=== PATIENT | male | born 1935 | race American Indian/Alaskan Native ===

== ENCOUNTER 2017-03-04 19:43 | Emergency (ER) | payer MEDICARE ==
[2017-03-04 21:01] LABS: Basophils % (Auto) 0.9 % (0.0-1.8); Eosinophils % (Auto) 3.2 % (0.0-4.3); Hematocrit 42.7 % (35.5-45.6); Hemoglobin 13.7 gm/dl (11.8-15.2); Mean Corpuscular HGB Conc 32 % (32-34); Mean Corpuscular Hemoglobin 26 pg (28-32); Mean Corpuscular Volume 82 fl (84-94); Platelet Count 185 K/mm3 (140-440); Red Blood Count 5.19 M/mm3 (3.65-5.03); Red Cell Distribution Width 16.5 % (13.2-15.2); White Blood Count 5.2 K/mm3 (4.5-11.0)
[2017-03-04 21:06] LABS: Anion Gap 17 mmol/L; Blood Urea Nitrogen 13 mg/dL (9-20); Calcium 8.3 mg/dL (8.4-10.2); Carbon Dioxide 24 mmol/L (22-30); Chloride 108.2 mmol/L (98-107); Glucose 97 mg/dL (75-100); Potassium 3.7 mmol/L (3.6-5.0); Sodium 145 mmol/L (137-145)
[2017-03-04 21:49] LABS: Bilirubin,Urine NEG (Negative); Blood,Urine NEG (Negative); Ketones,Urine TR mg/dL (Negative); Leukocyte Esterase,Urine SM (Negative); Mucus,Urine FEW /HPF; Nitrite,Urine NEG (Negative); Protein,Urine <15 mg/dL mg/dL (Negative)
[2017-03-04] MEDS ORDERED: NACL 0.45% 500 ML IV SCH (22:00)
[2017-03-04] MEDS ORDERED: NACL 0.9% 1000 ML 1,000 ML IV ONE (22:07)
[2017-03-04] MEDS ORDERED: ROCEPHIN/NS 1 GM/50 ML 1 GM/50 ML BAG IV ONE (22:25)
--- NOTE | 2017-03-04 22:47 | Emergency Department Report ---
ED Male HPI - General Chief complaint: Urogenital-Male Stated complaint: FEVER,DISCOLORATION OF URINE Time Seen by Provider: 03/04/17 21:27 Source: EMS Mode of arrival: Stretcher Limitations: No Limitations - History of Present Illness Initial comments: 81-year-old male with a past medical history CHF, COPD, dementia, hypertension, arthritis, and BPH presents to the hospital with "dark discoloration in urine". Patient is only able to get simple yes and no responses to questions. He denies any pain. He states he does not know why he is here. Fever prior to arrival reported by the senior care. - Related Data Home Medications Medication Instructions Recorded Confirmed Last Taken Donepezil [Aricept] 5 mg PO QDAY 03/19/16 03/19/16 Unknown Sertraline [Zoloft] 100 mg PO QDAY 03/19/16 03/19/16 Unknown Tamsulosin [Flomax] 0.4 mg PO QDAY 03/19/16 03/19/16 Unknown Previous Rx's Medication Instructions Recorded Last Taken Type Aspirin [Aspirin BABY CHEW TAB] 81 mg PO QDAY #30 tab.chew 12/17/16 Unknown Rx Amoxicillin/K Clav Tab [Augmentin 1 each PO Q12HR #10 tablet 02/02/17 Unknown Rx 500 MG TAB] Hydrochlorothiazide [HCTZ] 12.5 mg PO QDAY capsule 02/02/17 Unknown Rx Lisinopril [Zestril TAB] 40 mg PO QDAY tablet 02/02/17 Unknown Rx Memantine Xr [Namenda Xr] 14 mg PO DAILY cap 02/02/17 Unknown Rx NIFEdipine XL [Procardia Xl] 30 mg PO Q12HR tablet 02/02/17 Unknown Rx Nitrofurantoin [place]/M-Cryst 100 mg PO Q12HR #14 capsule 03/04/17 Unknown Rx [Macrobid CAP] Allergies Allergy/AdvReac Type Severity Reaction Status Date / Time No Known Allergies Allergy Verified 01/30/17 11:54 ED Review of Systems ROS: Stated complaint: FEVER,DISCOLORATION OF URINE Other details as noted in HPI Comment: Unobtainable due to pts medical conditions (limited due to dementia see hpi) ED Past Medical Hx - Past Medical History Hx Hypertension: Yes Hx Congestive Heart Failure: Yes Hx Diabetes: Yes Hx Arthritis: Yes Hx COPD: Yes Hx Dementia: Yes Hx HIV: No Additional medical history: bph - Social History Smoking Status: Current Every Day Smoker Substance Use Type: None - Medications Home Medications: Home Medications Medication Instructions Recorded Confirmed Last Taken Type Donepezil [Aricept] 5 mg PO QDAY 03/19/16 03/19/16 Unknown History Sertraline [Zoloft] 100 mg PO QDAY 03/19/16 03/19/16 Unknown History Tamsulosin [Flomax] 0.4 mg PO QDAY 03/19/16 03/19/16 Unknown History Aspirin [Aspirin BABY CHEW TAB] 81 mg PO QDAY #30 tab.chew 12/17/16 Unknown Rx Amoxicillin/K Clav Tab [Augmentin 1 each PO Q12HR #10 tablet 02/02/17 Unknown Rx 500 MG TAB] Hydrochlorothiazide [HCTZ] 12.5 mg PO QDAY capsule 02/02/17 Unknown Rx Lisinopril [Zestril TAB] 40 mg PO QDAY tablet 02/02/17 Unknown Rx Memantine Xr [Namenda Xr] 14 mg PO DAILY cap 02/02/17 Unknown Rx NIFEdipine XL [Procardia Xl] 30 mg PO Q12HR tablet 02/02/17 Unknown Rx Nitrofurantoin [place]/M-Cryst 100 mg PO Q12HR #14 capsule 03/04/17 Unknown Rx [Macrobid CAP] ED Physical Exam - General Limitations: No Limitations - Other Other exam information: General: No limitations, patient is alert in no acute distress Head exam: Atraumatic, normocephalic Eyes exam: Normal appearance ENT: Moist mucous membrane, normal oropharynx Neck exam: Normal inspection, full range of motion Respiratory exam: Clear to auscultation bilateral, no wheezes, rales, crackles Cardiovascular: Normal rate and rhythm, normal heart sounds Abdomen: Soft, nondistended, and nontender, with normal bowel sounds, no rebound, or guarding : Uncircumcised, no penile lesions or testicular swelling Extremity: Full range of motion normal inspection no deformity Back: Normal Inspection, full range of motion, no tenderness Neurologic: Alert, oriented x3, cranial nerves intact, no motor or sensory deficit Psychiatric: normal affect, normal mood Skin: Warm, dry, intact ED Course Vital Signs 03/04/17 03/04/17 03/04/17 20:17 20:45 21:00 Temperature 99.5 F Pulse Rate 92 H 56 L 71 Respiratory 18 19 15 Rate Blood Pressure 127/84 Blood Pressure 130/83 [Left] O2 Sat by Pulse 95 96 95 Oximetry 03/04/17 03/04/17 03/04/17 21:30 22:00 22:31 Temperature Pulse Rate 68 65 71 Respiratory 18 17 17 Rate Blood Pressure 128/85 135/96 135/81 Blood Pressure [Left] O2 Sat by Pulse 94 96 93 Oximetry - Reevaluation(s) Reevaluation #1: 03/04/17 22:49 Patient has mild elevated in white cells on a UA. Straight cath. Rocephin ordered. Reevaluation #2: 03/04/17 23:04 pt tolerating po ED Medical Decision Making - Lab Data Result diagrams: 03/04/17 20:38 03/04/17 20:38 Lab Results 03/04/17 03/04/17 03/04/17 Range/Units 20:38 20:38 20:57 WBC 5.2 (4.5-11.0) K/mm3 RBC 5.19 H (3.65-5.03) M/mm3 Hgb 13.7 (11.8-15.2) gm/dl Hct 42.7 (35.5-45.6) % MCV 82 L (84-94) fl MCH 26 L (28-32) pg MCHC 32 (32-34) % RDW 16.5 H (13.2-15.2) % Plt Count 185 (140-440) K/mm3 Lymph % (Auto) 22.2 (13.4-35.0) % [place] % (Auto) 5.6 (0.0-7.3) % Eos % (Auto) 3.2 (0.0-4.3) % Baso % (Auto) 0.9 (0.0-1.8) % Lymph # 1.2 (1.2-5.4) K/mm3 [place] # 0.3 (0.0-0.8) K/mm3 Eos # 0.2 (0.0-0.4) K/mm3 Baso # 0.0 (0.0-0.1) K/mm3 Seg Neutrophils % 68.1 (40.0-70.0) % Seg Neutrophils # 3.6 (1.8-7.7) K/mm3 Sodium 145 (137-145) mmol/L Potassium 3.7 (3.6-5.0) mmol/L Chloride 108.2 H (98-107) mmol/L Carbon Dioxide 24 (22-30) mmol/L Anion Gap 17 mmol/L BUN 13 (9-20) mg/dL Creatinine 1.3 (0.8-1.5) mg/dL Estimated GFR > 60 ml/min BUN/Creatinine Ratio 10.00 % Glucose 97 (75-100) mg/dL Calcium 8.3 L (8.4-10.2) mg/dL Urine Color Yellow (Yellow) Urine Turbidity Clear (Clear) Urine pH 5.0 (5.0-7.0) Ur Specific [place] 1.025 (1.003-1.030) Urine Protein <15 mg/dl (Negative) mg/dL Urine Glucose (UA) Neg (Negative) mg/dL Urine Ketones Tr (Negative) mg/dL Urine Blood Neg (Negative) Urine Nitrite Neg (Negative) Urine Bilirubin Neg (Negative) Urine Urobilinogen 2.0 (<2.0) mg/dL Ur Leukocyte Esterase Sm (Negative) Urine WBC (Auto) 12.0 H (0.0-6.0) /HPF Urine RBC (Auto) 7.0 (0.0-6.0) /HPF Urine Mucus Few /HPF - Radiology Data Radiology results: image reviewed (cxr: naf) - Medical Decision Making Patient mild ureteral leukocytosis of therefore be covered with antibiotics while urine culture is pending however, without nitrites or bacteria reported have a low suspicion for significant UTI or infection. Patient has a high specific gravity and concentrated appearing urine suggestive of mild dehydration. BUN and creatinine normal. In the ED patient received 1 L normal saline and IV Rocephin. Pt will be discharged on Macrobid. Tolerating by mouth intake in the ED - Differential Diagnosis uti, peumonia, dehdration, dementia Critical Care Time: No Critical care attestation.: If time is entered above; I have spent that time in minutes in the direct care of this critically ill patient, excluding procedure time. ED Disposition Clinical Impression: Dementia, Mild dehydration, Urine WBC increased Disposition: DC-01 TO HOME OR SELFCARE Is pt being admited?: No Does the pt Need Aspirin: No Condition: Stable Instructions: Dehydration (ED), Urinary Tract Infection in Men (ED) Additional Instructions: Continues to eat and drink appropriately. Take the Medication as prescribed. Return if symptoms worsen. Prescriptions: Nitrofurantoin [place]/M-Cryst [Macrobid CAP] 100 mg PO Q12HR #14 capsule Referrals: PRIMARY CARE, [Primary Care Provider] - 3-5 Days Time of Disposition: 00:13
[2017-03-04 22:55] VITALS: BP 135/81
--- NOTE | 2017-03-05 01:31 | XRay Report ---
FINAL REPORT PROCEDURE: XR CHEST 1V AP TECHNIQUE: Chest radiograph anteroposterior view. 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 FINDINGS: Heart: Normal. Mediastinum/Vessels: There is mild pulmonary vascular congestion.. Lungs/Pleural space: There is suboptimal inspiration. There are infiltrates at the lung bases. There are no effusions or pneumothoraces.. Bony thorax: No acute osseous abnormality. Life support devices: None. IMPRESSION: No acute cardiopulmonary abnormality.
== END 2017-03-05 04:18 | disposition home or self-care (01) ==
LOC: ED 19:43
DX: F03.90 Unspecified dementia, unspecified severity, without behavioral disturbance, psychotic disturbance, mood disturbance, and anxiety (principal); E86.0 Dehydration; R82.99 Other abnormal findings in urine; I10 Essential (primary) hypertension; I50.9 Heart failure, unspecified; E11.9 Type 2 diabetes mellitus without complications; M19.90 Unspecified osteoarthritis, unspecified site; J44.9 Chronic obstructive pulmonary disease, unspecified; F17.200 Nicotine dependence, unspecified, uncomplicated; Z79.82 Long term (current) use of aspirin
CPT/HCPCS: 36415; 51701; 71010; 80048; 81001; 85025; 87086; 96365; 99284; J0696; J7030

== ENCOUNTER 2017-03-06 11:14 | Inpatient (IN) | payer MEDICARE ==
[2017-03-06] MEDS ORDERED: NACL 0.9% 500 ML 500 ML IV ONE (11:31)
--- NOTE | 2017-03-06 11:37 | Emergency Department Report ---
ED Altered Mental Status HPI - General Chief Complaint: Altered Mental Status Stated Complaint: SEPSIS Time Seen by Provider: 03/06/17 11:32 Source: EMS, RN notes reviewed, old records reviewed Mode of arrival: Stretcher Limitations: Altered Mental Status - History of Present Illness Initial Comments: 81-year-old male presents to the emergency department via EMS for evaluation of altered mental status and possible sepsis. Patient was seen in the emergency department 2 days ago with reported fever and discolored urine. He was able to be discharged home on oral Macrobid for possible UTI. At baseline, patient has dementia and answers yes/no questions only. Per report, the patient is slightly more altered than usual. Further history is unable to be obtained from the patient. MD Complaint: altered mental status -: Gradual, days(s) (2) Severity: mild Consistency of Symptoms: constant Context: recent fever - Related Data Home Medications Medication Instructions Recorded Confirmed Last Taken Donepezil [Aricept] 5 mg PO QDAY 03/19/16 03/19/16 Unknown Sertraline [Zoloft] 100 mg PO QDAY 03/19/16 03/19/16 Unknown Tamsulosin [Flomax] 0.4 mg PO QDAY 03/19/16 03/19/16 Unknown Previous Rx's Medication Instructions Recorded Last Taken Type Aspirin [Aspirin BABY CHEW TAB] 81 mg PO QDAY #30 tab.chew 12/17/16 Unknown Rx Amoxicillin/K Clav Tab [Augmentin 1 each PO Q12HR #10 tablet 02/02/17 Unknown Rx 500 MG TAB] Hydrochlorothiazide [HCTZ] 12.5 mg PO QDAY capsule 02/02/17 Unknown Rx Lisinopril [Zestril TAB] 40 mg PO QDAY tablet 02/02/17 Unknown Rx Memantine Xr [Namenda Xr] 14 mg PO DAILY cap 02/02/17 Unknown Rx NIFEdipine XL [Procardia Xl] 30 mg PO Q12HR tablet 02/02/17 Unknown Rx Nitrofurantoin [place]/M-Cryst 100 mg PO Q12HR #14 capsule 03/04/17 Unknown Rx [Macrobid CAP] Allergies Allergy/AdvReac Type Severity Reaction Status Date / Time No Known Allergies Allergy Verified 01/30/17 11:54 ED Review of Systems ROS: Stated complaint: SEPSIS Other details as noted in HPI Comment: Unobtainable due to pts medical conditions ED Past Medical Hx - Past Medical History Previous Medical History?: Yes Hx Hypertension: Yes Hx Congestive Heart Failure: Yes Hx Diabetes: Yes Hx Arthritis: Yes Hx COPD: Yes Hx Dementia: Yes Hx HIV: No Additional medical history: bph - Surgical History Additional Surgical History: Bilateral cataract surgery - Family History Family history: no significant - Social History Smoking Status: Unknown if ever smoked Substance Use Type: None - Medications Home Medications: Home Medications Medication Instructions Recorded Confirmed Last Taken Type Donepezil [Aricept] 5 mg PO QDAY 03/19/16 03/19/16 Unknown History Sertraline [Zoloft] 100 mg PO QDAY 03/19/16 03/19/16 Unknown History Tamsulosin [Flomax] 0.4 mg PO QDAY 03/19/16 03/19/16 Unknown History Aspirin [Aspirin BABY CHEW TAB] 81 mg PO QDAY #30 tab.chew 12/17/16 Unknown Rx Amoxicillin/K Clav Tab [Augmentin 1 each PO Q12HR #10 tablet 02/02/17 Unknown Rx 500 MG TAB] Hydrochlorothiazide [HCTZ] 12.5 mg PO QDAY capsule 02/02/17 Unknown Rx Lisinopril [Zestril TAB] 40 mg PO QDAY tablet 02/02/17 Unknown Rx Memantine Xr [Namenda Xr] 14 mg PO DAILY cap 02/02/17 Unknown Rx NIFEdipine XL [Procardia Xl] 30 mg PO Q12HR tablet 02/02/17 Unknown Rx Nitrofurantoin [place]/M-Cryst 100 mg PO Q12HR #14 capsule 03/04/17 Unknown Rx [Macrobid CAP] ED Physical Exam - General Limitations: No Limitations General appearance: alert, in no apparent distress - Head Head exam: Present: atraumatic, normocephalic - Eye Eye exam: Present: normal appearance, PERRL, EOMI - ENT ENT exam: Present: normal exam, normal orophraynx, mucous membranes moist - Neck Neck exam: Present: normal inspection, full ROM. Absent: tenderness - Respiratory Respiratory exam: Present: normal lung sounds bilaterally. Absent: respiratory distress - Cardiovascular Cardiovascular Exam: Present: normal rhythm, tachycardia, normal heart sounds - GI/Abdominal GI/Abdominal exam: Present: soft, normal bowel sounds. Absent: distended, tenderness - Extremities Exam Extremities exam: Present: normal inspection, full ROM. Absent: tenderness - Back Exam Back exam: Present: normal inspection, full ROM. Absent: tenderness - Neurological Exam Neurological exam: Present: alert. Absent: oriented X3 (not oriented), motor sensory deficit - Skin Skin exam: Present: warm, dry, intact ED Course Vital Signs 03/06/17 11:18 Temperature 102.2 F H Pulse Rate 120 H Respiratory 18 Rate Blood Pressure 165/108 O2 Sat by Pulse 95 Oximetry - Lab Data Result diagrams: 03/06/17 11:46 03/06/17 11:46 Lab Results 03/06/17 03/06/17 03/06/17 Range/Units 11:46 11:46 11:46 WBC 12.3 H (4.5-11.0) K/mm3 RBC 5.93 H (3.65-5.03) M/mm3 Hgb 15.2 (11.8-15.2) gm/dl Hct 48.1 H (35.5-45.6) % MCV 81 L (84-94) fl MCH 26 L (28-32) pg MCHC 32 (32-34) % RDW 16.4 H (13.2-15.2) % Plt Count 202 (140-440) K/mm3 PT 13.3 (12.2-14.9) Sec. INR 0.96 (0.87-1.13) VBG pH (7.320-7.420) Sodium 142 (137-145) mmol/L Potassium 4.0 (3.6-5.0) mmol/L Chloride 103.6 (98-107) mmol/L Carbon Dioxide 23 (22-30) mmol/L Anion Gap 19 mmol/L BUN 9 (9-20) mg/dL Creatinine 1.4 (0.8-1.5) mg/dL Estimated GFR 59 ml/min BUN/Creatinine Ratio 6.42 % Glucose 92 (75-100) mg/dL Lactic Acid (0.7-2.0) mmol/L Calcium 8.8 (8.4-10.2) mg/dL Total Bilirubin 0.60 (0.1-1.2) mg/dL AST 11 (5-40) units/L ALT 7 (7-56) units/L Alkaline Phosphatase 111 (35-129) units/L Total Protein 6.3 (6.3-8.2) g/dL Albumin 3.9 (3.9-5) g/dL Albumin/Globulin Ratio 1.6 % Urine Color (Yellow) Urine Turbidity (Clear) Urine pH (5.0-7.0) Ur Specific [place] (1.003-1.030) Urine Protein (Negative) mg/dL Urine Glucose (UA) (Negative) mg/dL Urine Ketones (Negative) mg/dL Urine Blood (Negative) Urine Nitrite (Negative) Urine Bilirubin (Negative) Urine Urobilinogen (<2.0) mg/dL Ur Leukocyte Esterase (Negative) Urine WBC (Auto) (0.0-6.0) /HPF Urine RBC (Auto) (0.0-6.0) /HPF U Epithel Cells (Auto) (0-13.0) /HPF Urine Bacteria (Auto) (Negative) /HPF Urine Mucus /HPF 03/06/17 03/06/17 03/06/17 Range/Units 11:46 11:46 12:08 WBC (4.5-11.0) K/mm3 RBC (3.65-5.03) M/mm3 Hgb (11.8-15.2) gm/dl Hct (35.5-45.6) % MCV (84-94) fl MCH (28-32) pg MCHC (32-34) % RDW (13.2-15.2) % Plt Count (140-440) K/mm3 PT (12.2-14.9) Sec. INR (0.87-1.13) VBG pH 7.366 (7.320-7.420) Sodium (137-145) mmol/L Potassium (3.6-5.0) mmol/L Chloride (98-107) mmol/L Carbon Dioxide (22-30) mmol/L Anion Gap mmol/L BUN (9-20) mg/dL Creatinine (0.8-1.5) mg/dL Estimated GFR ml/min BUN/Creatinine Ratio % Glucose (75-100) mg/dL Lactic Acid 1.80 (0.7-2.0) mmol/L Calcium (8.4-10.2) mg/dL Total Bilirubin (0.1-1.2) mg/dL AST (5-40) units/L ALT (7-56) units/L Alkaline Phosphatase (35-129) units/L Total Protein (6.3-8.2) g/dL Albumin (3.9-5) g/dL Albumin/Globulin Ratio % Urine Color Yellow (Yellow) Urine Turbidity Clear (Clear) Urine pH 5.0 (5.0-7.0) Ur Specific [place] 1.018 (1.003-1.030) Urine Protein <15 mg/dl (Negative) mg/dL Urine Glucose (UA) Neg (Negative) mg/dL Urine Ketones Tr (Negative) mg/dL Urine Blood Mod (Negative) Urine Nitrite Neg (Negative) Urine Bilirubin Neg (Negative) Urine Urobilinogen < 2.0 (<2.0) mg/dL Ur Leukocyte Esterase Mod (Negative) Urine WBC (Auto) 36.0 H (0.0-6.0) /HPF Urine RBC (Auto) 33.0 (0.0-6.0) /HPF U Epithel Cells (Auto) < 1.0 (0-13.0) /HPF Urine Bacteria (Auto) 1+ (Negative) /HPF Urine Mucus 1+ /HPF - EKG Data -: EKG Interpreted by Nh EKG shows normal: sinus rhythm Rate: tachycardia When compared to previous EKG there are: previous EKG unavailable Interpretation: other (sinus tachycardia, RBBB, LAFB, occasional PVC) - Medical Decision Making Patient seen immediately on arrival to the emergency department. Patient has positive sepsis screen with fever and tachycardia. Obtaining labs including blood cultures and urine culture. Continuing IV fluids. Review of previous emergency department visit showed he had a urine culture obtained at that time, which currently has no growth after 24 hours. We'll continue to monitor. 1238--lab results reviewed. Patient is being given IV Rocephin. Patient has a normal lactic acid. A repeat lactic acid will be obtained after 3 hours. Patient is to be admitted by the hospitalist. - Differential Diagnosis sepsis, UTI, dehydration Critical care attestation.: If time is entered above; I have spent that time in minutes in the direct care of this critically ill patient, excluding procedure time. ED Disposition Clinical Impression: Sepsis Qualifiers: Sepsis type: sepsis due to unspecified organism Qualified Code(s): A41.9 - Sepsis, unspecified organism UTI (urinary tract infection) Qualifiers: Urinary tract infection type: acute cystitis Hematuria presence: without hematuria Qualified Code(s): N30.00 - Acute cystitis without hematuria Disposition: OP ADMIT IP TO THIS HOSP Is pt being admited?: Yes Condition: Stable Referrals: PRIMARY CARE, [Primary Care Provider] - 3-5 Days Time of Disposition: 12:40
--- NOTE | 2017-03-06 12:15 | XRay Report ---
AP CHEST :03/06/17 11:14:00 CLINICAL: Sepsis. COMPARISON:03/04/17 FINDINGS: Normal heart and pulmonary vasculature. Prominent bibasal reticular interstitial opacities are unchanged compared to prior exams. No pulmonary consolidation. The bones and soft tissues are normal. IMPRESSION: No acute cardiopulmonary process. No pneumonia.
[2017-03-06 12:19] LABS: Hematocrit 48.1 % (35.5-45.6); Hemoglobin 15.2 gm/dl (11.8-15.2); Mean Corpuscular HGB Conc 32 % (32-34); Mean Corpuscular Volume 81 fl (84-94); Platelet Count 202 K/mm3 (140-440); Red Blood Count 5.93 M/mm3 (3.65-5.03); Red Cell Distribution Width 16.4 % (13.2-15.2); White Blood Count 12.3 K/mm3 (4.5-11.0)
[2017-03-06 12:20] LABS: Bacteria,Urine 1+ /HPF (Negative); Bilirubin,Urine NEG (Negative); Blood,Urine MOD (Negative); Ketones,Urine TR mg/dL (Negative); Leukocyte Esterase,Urine MOD (Negative); Mucus,Urine 1+ /HPF; Nitrite,Urine NEG (Negative); Protein,Urine <15 mg/dL mg/dL (Negative); Urobilinogen,Urine < 2.0 mg/dL (<2.0)
[2017-03-06 12:20] LABS: Mean Corpuscular Hemoglobin 26 pg (28-32)
[2017-03-06 12:25] LABS: INR 0.96 (0.87-1.13)
[2017-03-06 12:32] LABS: Albumin 3.9 g/dL (3.9-5); Albumin/Globulin Ratio 1.6 %; BUN/Creatinine Ratio 6.42; Bilirubin,Total 0.6 mg/dL (0.1-1.2); Calcium 8.8 mg/dL (8.4-10.2); Chloride 103.6 mmol/L (98-107); Total Protein 6.3 g/dL (6.3-8.2)
[2017-03-06] MEDS ORDERED: ROCEPHIN/NS 1 GM/50 ML 1 GM/50 ML BAG IV ONE (12:33)
--- NOTE | 2017-03-06 12:46 | History and Physical Report ---
History of Present Illness Chief complaint: confusion History of present illness: 81 YO Male with HTN, DM, OA, CHF, COPD, Dementia, BPH, Debility presents to ED for evaluation. Pt unable to provide detailed history. History taken from ED staff and medical record. No reports of fever, chills, CP, palpitations, NVD, Syncope, Trauma, Fall, BRBPR, Seizure, recent ill contacts. Pt seen and evaluated in ED and found to have suprapubic tenderness on exam and UA indicative of UTI, as well as sepsis. Sepsis protocol initiated in ED. Past History Past Medical History: arthritis, COPD, diabetes, heart failure, hypertension, other (Dementia, Debility, BPH) Past Surgical History: cataract removal Social history: , lives with family. denies: smoking, alcohol abuse, prescription drug abuse Family history: hypertension Medications and Allergies Allergies Allergy/AdvReac Type Severity Reaction Status Date / Time No Known Allergies Allergy Verified 01/30/17 11:54 Home Medications Medication Instructions Recorded Confirmed Last Taken Type Donepezil [Aricept] 5 mg PO QDAY 03/19/16 03/06/17 Unknown History Sertraline [Zoloft] 100 mg PO QDAY 03/19/16 03/06/17 Unknown History Tamsulosin [Flomax] 0.4 mg PO QDAY 03/19/16 03/06/17 Unknown History Aspirin [Aspirin BABY CHEW TAB] 81 mg PO QDAY #30 tab.chew 12/17/16 03/06/17 Unknown Rx Amoxicillin/K Clav Tab [Augmentin 1 each PO Q12HR #10 tablet 02/02/17 03/06/17 Unknown Rx 500 MG TAB] Hydrochlorothiazide [HCTZ] 12.5 mg PO QDAY capsule 02/02/17 03/06/17 Unknown Rx Lisinopril [Zestril TAB] 40 mg PO QDAY tablet 02/02/17 03/06/17 Unknown Rx Memantine Xr [Namenda Xr] 14 mg PO DAILY cap 02/02/17 03/06/17 Unknown Rx NIFEdipine XL [Procardia Xl] 30 mg PO Q12HR tablet 02/02/17 03/06/17 Unknown Rx Nitrofurantoin [place]/M-Cryst 100 mg PO Q12HR #14 capsule 03/04/17 03/06/17 Unknown Rx [Macrobid CAP] Active Meds: Active Medications Ceftriaxone Sodium (Rocephin/Ns 1 Gm/50 Ml) 1 gm in 50 mls @ 100 mls/hr IV ONCE ONE Stop: 03/06/17 13:02 Review of Systems ROS unobtainable: due to mental status Exam - Constitutional Vitals: Temp Pulse Resp BP Pulse Ox 102.2 F H 120 H 18 165/108 95 03/06/17 11:18 03/06/17 11:18 03/06/17 11:18 03/06/17 11:18 03/06/17 11:18 General appearance: Present: mild distress - EENT Eyes: Present: PERRL ENT: hearing intact, clear oral mucosa, other (ddry oral mucosa) - Neck Neck: Present: supple, normal ROM - Respiratory Respiratory: bilateral: diminished - Cardiovascular Heart Sounds: Present: S1 & S2. Absent: rub, click - Extremities Extremities: pulses symmetrical, No edema Peripheral Pulses: abnormal (Capillary refill: 3.5 seconds) - Abdominal General gastrointestinal: Present: soft, non-tender, non-distended, normal bowel sounds Male genitourinary: Present: normal - Integumentary Integumentary: Present: clear, dry, decreased turgor - Musculoskeletal Musculoskeletal: generalized weakness - Psychiatric Psychiatric: no intact judgment & insight, no memory intact - Neurologic Neurologic: CNII-XII intact, no gait normal, other (lethargic) Results - Labs CBC & Chem 7: 03/06/17 11:46 03/06/17 11:46 Labs: Abnormal lab results 03/06/17 03/06/17 Range/Units 11:46 12:08 WBC 12.3 H (4.5-11.0) K/mm3 RBC 5.93 H (3.65-5.03) M/mm3 Hct 48.1 H (35.5-45.6) % MCV 81 L (84-94) fl MCH 26 L (28-32) pg RDW 16.4 H (13.2-15.2) % Urine WBC (Auto) 36.0 H (0.0-6.0) /HPF Assessment and Plan - Patient Problems (1) Sepsis Current Visit: Yes Status: Acute Qualifiers: Sepsis type: sepsis due to unspecified organism Qualified Code(s): A41.9 - Sepsis, unspecified organism Plan to address problem: Sepsis protocol: IV abx, monitor uop q shift, serial lactic acid level, blood culutres, (2) Toxic encephalopathy Current Visit: Yes Status: Acute Plan to address problem: Treat sepsis, supportive care, fall precautions, PT consulted. (3) Accelerated hypertension Current Visit: Yes Status: Acute Plan to address problem: monitor bp q shift, monitor uop q shift, (4) UTI (urinary tract infection) Current Visit: Yes Status: Acute Qualifiers: Urinary tract infection type: acute cystitis Hematuria presence: without hematuria Indwelling urinary catheter type: I Encounter type: E Qualified Code(s): N30.00 - Acute cystitis without hematuria Plan to address problem: IV abx, supportive care, serial physical exam. (5) DVT prophylaxis Current Visit: Yes Status: Acute
[2017-03-06] MEDS ORDERED: DUONEB *Not for PRN Use IH (12:47)
[2017-03-06] MEDS ORDERED: VANCOMYCIN VIAL IV ONE (12:47)
[2017-03-06] MEDS ORDERED: NACL 0.9% 1000 ML IV ONE ×2 (12:47→18:00)
[2017-03-06] MEDS ORDERED: VANCOMYCIN PHARMACY TO DOSE IV SCH (13:00)
[2017-03-06 13:15] LABS: Blastocytes % (Manual) 0 %
[2017-03-06 13:16] LABS: Anisocytosis 1+; Diff Status Complete; Large Platelets Rare; Platelet Estimate Cons
[2017-03-06] MEDS ORDERED: PROVENTIL IH PRN (13:30)
[2017-03-06] MEDS: VANCOMYCIN 1,500 MG in NACL 0.9% 500 ML 500 ML IV SCH (15:28)
--- NOTE | 2017-03-07 10:00 | Progress Note ---
Assessment and Plan Assessment and plan: Sepsis due to UTI. Started on Rocephin. Toxic metabolic encephalopathy. Monitor neurochecks. He has baseline dementia. Acute cystitis. Continue Rocephin COPD. Stable Diabetes mellitus type 2. Check fingerstick glucose before every meal and at bedtime Hypertension. BP stable Dementia. Supportive care. On Namenda and Aricept. Put on restraints for now because he keeps trying to get out of bed, fall risk. Haldol prn. DVT prophylaxis with Heparin subcut Hospitalist Physical - Physical exam Narrative exam: Gen Appearance: No acute distress, HEENT: normocephalic, atraumatic Neck: supple, no JVD Lungs: clear to auscultation bilaterally, no crackles or wheezes Heart: S1 and S2 regular, no murmurs or gallop Abdomen: Soft, non-tender, non-distended, normal bowel sounds Extremity:No edema, clubbing or cyanosis Neuro : Awake, alert, confused - Constitutional Vitals: Temp Pulse Resp BP Pulse Ox 98.7 F 74 18 151/82 95 03/07/17 04:04 03/07/17 04:04 03/07/17 04:04 03/07/17 04:04 03/07/17 09:09 General appearance: Present: mild distress Results - Labs CBC & Chem 7: 03/06/17 11:46 03/06/17 11:46 Labs: Laboratory Last Values WBC 12.3 K/mm3 (4.5-11.0) H 03/06/17 11:46 RBC 5.93 M/mm3 (3.65-5.03) H 03/06/17 11:46 Hgb 15.2 gm/dl (11.8-15.2) 03/06/17 11:46 Hct 48.1 % (35.5-45.6) H 03/06/17 11:46 MCV 81 fl (84-94) L 03/06/17 11:46 MCH 26 pg (28-32) L 03/06/17 11:46 MCHC 32 % (32-34) 03/06/17 11:46 RDW 16.4 % (13.2-15.2) H 03/06/17 11:46 Plt Count 202 K/mm3 (140-440) 03/06/17 11:46 Add Manual Diff Complete 03/06/17 11:46 Total Counted 100 03/06/17 11:46 Seg Neuts % (Manual) 98.0 % (40.0-70.0) H 03/06/17 11:46 Band Neutrophils % 0 % 03/06/17 11:46 Lymphocytes % (Manual) 0 % (13.4-35.0) L 03/06/17 11:46 Reactive Lymphs % (Man) 0 % 03/06/17 11:46 Monocytes % (Manual) 0 % (0.0-7.3) 03/06/17 11:46 Eosinophils % (Manual) 1.0 % (0.0-4.3) 03/06/17 11:46 Basophils % (Manual) 1.0 % (0.0-1.8) 03/06/17 11:46 Metamyelocytes % 0 % 03/06/17 11:46 Myelocytes % 0 % 03/06/17 11:46 Promyelocytes % 0 % 03/06/17 11:46 Blast Cells % 0 % 03/06/17 11:46 Nucleated RBC % Not Reportable 03/06/17 11:46 Seg Neutrophils # Man 12.1 K/mm3 (1.8-7.7) H 03/06/17 11:46 Band Neutrophils # 0.0 K/mm3 03/06/17 11:46 Lymphocytes # (Manual) 0.0 K/mm3 (1.2-5.4) L 03/06/17 11:46 Abs React Lymphs (Man) 0.0 K/mm3 03/06/17 11:46 Monocytes # (Manual) 0.0 K/mm3 (0.0-0.8) 03/06/17 11:46 Eosinophils # (Manual) 0.1 K/mm3 (0.0-0.4) 03/06/17 11:46 Basophils # (Manual) 0.1 K/mm3 (0.0-0.1) 03/06/17 11:46 Metamyelocytes # 0.0 K/mm3 03/06/17 11:46 Myelocytes # 0.0 K/mm3 03/06/17 11:46 Promyelocytes # 0.0 K/mm3 03/06/17 11:46 Blast Cells # 0.0 K/mm3 03/06/17 11:46 WBC Morphology Not Reportable 03/06/17 11:46 Hypersegmented Neuts Not Reportable 03/06/17 11:46 Hyposegmented Neuts Not Reportable 03/06/17 11:46 Hypogranular Neuts Not Reportable 03/06/17 11:46 Smudge Cells Not Reportable 03/06/17 11:46 Toxic Granulation Not Reportable 03/06/17 11:46 Toxic Vacuolation Not Reportable 03/06/17 11:46 Dohle Bodies Not Reportable 03/06/17 11:46 Pelger-Huet Anomaly Not Reportable 03/06/17 11:46 Heather Rods Not Reportable 03/06/17 11:46 Platelet Estimate Cons 03/06/17 11:46 Clumped Platelets Not Reportable 03/06/17 11:46 Plt Clumps, EDTA Not Reportable 03/06/17 11:46 Large Platelets Rare 03/06/17 11:46 Giant Platelets Not Reportable 03/06/17 11:46 Platelet Satelliting Not Reportable 03/06/17 11:46 Plt Morphology Comment Not Reportable 03/06/17 11:46 RBC Morphology Not Reportable 03/06/17 11:46 Dimorphic RBCs Not Reportable 03/06/17 11:46 Polychromasia Not Reportable 03/06/17 11:46 Hypochromasia Not Reportable 03/06/17 11:46 Poikilocytosis Not Reportable 03/06/17 11:46 Anisocytosis 1+ 03/06/17 11:46 Microcytosis Not Reportable 03/06/17 11:46 Macrocytosis Not Reportable 03/06/17 11:46 Spherocytes Not Reportable 03/06/17 11:46 Pappenheimer Bodies Not Reportable 03/06/17 11:46 Sickle Cells Not Reportable 03/06/17 11:46 Target Cells Not Reportable 03/06/17 11:46 Tear Drop Cells Not Reportable 03/06/17 11:46 Ovalocytes Not Reportable 03/06/17 11:46 Helmet Cells Not Reportable 03/06/17 11:46 [place] Bodies Not Reportable 03/06/17 11:46 [place] Rings Not Reportable 03/06/17 11:46 [place] Cells Not Reportable 03/06/17 11:46 Bite Cells Not Reportable 03/06/17 11:46 Crenated Cell Not Reportable 03/06/17 11:46 Elliptocytes Not Reportable 03/06/17 11:46 Acanthocytes (Spur) Not Reportable 03/06/17 11:46 Rouleaux Not Reportable 03/06/17 11:46 Hemoglobin C Crystals Not Reportable 03/06/17 11:46 Schistocytes Not Reportable 03/06/17 11:46 Malaria parasites Not Reportable 03/06/17 11:46 Christiano Bodies Not Reportable 03/06/17 11:46 Hem Pathologist Commnt No 03/06/17 11:46 PT 13.3 Sec. (12.2-14.9) 03/06/17 11:46 INR 0.96 (0.87-1.13) 03/06/17 11:46 VBG pH 7.366 (7.320-7.420) 03/06/17 11:46 Sodium 142 mmol/L (137-145) 03/06/17 11:46 Potassium 4.0 mmol/L (3.6-5.0) 03/06/17 11:46 Chloride 103.6 mmol/L (98-107) 03/06/17 11:46 Carbon Dioxide 23 mmol/L (22-30) 03/06/17 11:46 Anion Gap 19 mmol/L 03/06/17 11:46 BUN 9 mg/dL (9-20) 03/06/17 11:46 Creatinine 1.4 mg/dL (0.8-1.5) 03/06/17 11:46 Estimated GFR 59 ml/min 03/06/17 11:46 BUN/Creatinine Ratio 6.42 % 03/06/17 11:46 Glucose 92 mg/dL (75-100) 03/06/17 11:46 Lactic Acid 1.10 mmol/L (0.7-2.0) 03/06/17 17:44 Calcium 8.8 mg/dL (8.4-10.2) 03/06/17 11:46 Total Bilirubin 0.60 mg/dL (0.1-1.2) 03/06/17 11:46 AST 11 units/L (5-40) 03/06/17 11:46 ALT 7 units/L (7-56) 03/06/17 11:46 Alkaline Phosphatase 111 units/L (35-129) 03/06/17 11:46 Total Protein 6.3 g/dL (6.3-8.2) 03/06/17 11:46 Albumin 3.9 g/dL (3.9-5) 03/06/17 11:46 Albumin/Globulin Ratio 1.6 % 03/06/17 11:46 Urine Color Yellow (Yellow) 03/06/17 12:08 Urine Turbidity Clear (Clear) 03/06/17 12:08 Urine pH 5.0 (5.0-7.0) 03/06/17 12:08 Ur Specific [place] 1.018 (1.003-1.030) 03/06/17 12:08 Urine Protein <15 mg/dl mg/dL (Negative) 03/06/17 12:08 Urine Glucose (UA) Neg mg/dL (Negative) 03/06/17 12:08 Urine Ketones Tr mg/dL (Negative) 03/06/17 12:08 Urine Blood Mod (Negative) 03/06/17 12:08 Urine Nitrite Neg (Negative) 03/06/17 12:08 Urine Bilirubin Neg (Negative) 03/06/17 12:08 Urine Urobilinogen < 2.0 mg/dL (<2.0) 03/06/17 12:08 Ur Leukocyte Esterase Mod (Negative) 03/06/17 12:08 Urine WBC (Auto) 36.0 /HPF (0.0-6.0) H 03/06/17 12:08 Urine RBC (Auto) 33.0 /HPF (0.0-6.0) 03/06/17 12:08 U Epithel Cells (Auto) < 1.0 /HPF (0-13.0) 03/06/17 12:08 Urine Bacteria (Auto) 1+ /HPF (Negative) 03/06/17 12:08 Urine Mucus 1+ /HPF 03/06/17 12:08
[2017-03-07] MEDS ORDERED: HALDOL IM PRN (11:30)
[2017-03-07] MEDS: ROCEPHIN/NS 2 GM/100 ML 2 GM/100 ML BAG IV SCH (11:52)
[2017-03-07] MEDS: VANCOMYCIN 1,500 MG in NACL 0.9% 500 ML 500 ML IV SCH (13:57)
[2017-03-07] MEDS: HEPARIN SUB-Q SCH (14:02)
[2017-03-07] MEDS: FLOMAX PO SCH (14:07)
[2017-03-07] MEDS: ZOLOFT PO SCH (14:07)
[2017-03-07] MEDS: BABY ASPIRIN PO SCH (14:07)
[2017-03-07] MEDS: MACROBID PO SCH (14:07)
[2017-03-07] MEDS: PROCARDIA XL PO SCH (14:07)
[2017-03-07] MEDS: ARICEPT PO SCH (14:08)
[2017-03-07] MEDS: NAMENDA XR PO SCH (15:29)
[2017-03-07] MEDS ORDERED: APRESOLINE IV PRN (20:11)
[2017-03-08] MEDS: HEPARIN SUB-Q SCH ×3 (06:40→22:02)
[2017-03-08] MEDS: ROCEPHIN/NS 2 GM/100 ML 2 GM/100 ML BAG IV SCH (10:00)
[2017-03-08] MEDS: PROCARDIA XL PO SCH ×3 (11:05→22:01)
[2017-03-08] MEDS: HCTZ PO SCH (11:05)
[2017-03-08] MEDS: ARICEPT PO SCH (11:06)
[2017-03-08] MEDS: NAMENDA XR PO SCH (11:06)
[2017-03-08] MEDS: FLOMAX PO SCH (11:06)
[2017-03-08] MEDS: MACROBID PO SCH ×3 (11:06→23:00)
[2017-03-08] MEDS: BABY ASPIRIN PO SCH (11:06)
[2017-03-08] MEDS: ZESTRIL PO SCH (11:07)
[2017-03-08] MEDS: ZOLOFT PO SCH (11:07)
--- NOTE | 2017-03-08 11:56 | Progress Note ---
Assessment and Plan Assessment and plan: Sepsis due to UTI. Continue Rocephin iv. His WBC was 12.3 on admission. Repeat CBC. Toxic metabolic encephalopathy. Monitor neurochecks. He has baseline dementia. Leukocytosis. Repeat CBC Acute cystitis. Continue Rocephin COPD. Stable Diabetes mellitus type 2. Check fingerstick glucose before every meal and at bedtime Hypertension. BP stable Dementia. Supportive care. On Namenda and Aricept. Continue restraints for now because he keeps trying to get out of bed, fall risk. Continue Haldol prn. DVT prophylaxis with Heparin subcut History Interval history: Still confused, Fever Hospitalist Physical - Physical exam Narrative exam: Gen Appearance: No acute distress, HEENT: normocephalic, atraumatic Neck: supple, no JVD Lungs: clear to auscultation bilaterally, no crackles or wheezes Heart: S1 and S2 regular, no murmurs or gallop Abdomen: Soft, non-tender, non-distended, normal bowel sounds Extremity:No edema, clubbing or cyanosis Neuro : Awake, alert, confused - Constitutional Vitals: Temp Pulse Resp BP Pulse Ox 100.4 F H 106 H 20 144/94 95 03/08/17 08:30 03/08/17 08:30 03/08/17 08:30 03/08/17 08:30 03/08/17 08:30 General appearance: Present: mild distress Results - Labs CBC & Chem 7: 03/06/17 11:46 03/06/17 11:46 Labs: Laboratory Last Values WBC 12.3 K/mm3 (4.5-11.0) H 03/06/17 11:46 RBC 5.93 M/mm3 (3.65-5.03) H 03/06/17 11:46 Hgb 15.2 gm/dl (11.8-15.2) 03/06/17 11:46 Hct 48.1 % (35.5-45.6) H 03/06/17 11:46 MCV 81 fl (84-94) L 03/06/17 11:46 MCH 26 pg (28-32) L 03/06/17 11:46 MCHC 32 % (32-34) 03/06/17 11:46 RDW 16.4 % (13.2-15.2) H 03/06/17 11:46 Plt Count 202 K/mm3 (140-440) 03/06/17 11:46 Add Manual Diff Complete 03/06/17 11:46 Total Counted 100 03/06/17 11:46 Seg Neuts % (Manual) 98.0 % (40.0-70.0) H 03/06/17 11:46 Band Neutrophils % 0 % 03/06/17 11:46 Lymphocytes % (Manual) 0 % (13.4-35.0) L 03/06/17 11:46 Reactive Lymphs % (Man) 0 % 03/06/17 11:46 Monocytes % (Manual) 0 % (0.0-7.3) 03/06/17 11:46 Eosinophils % (Manual) 1.0 % (0.0-4.3) 03/06/17 11:46 Basophils % (Manual) 1.0 % (0.0-1.8) 03/06/17 11:46 Metamyelocytes % 0 % 03/06/17 11:46 Myelocytes % 0 % 03/06/17 11:46 Promyelocytes % 0 % 03/06/17 11:46 Blast Cells % 0 % 03/06/17 11:46 Nucleated RBC % Not Reportable 03/06/17 11:46 Seg Neutrophils # Man 12.1 K/mm3 (1.8-7.7) H 03/06/17 11:46 Band Neutrophils # 0.0 K/mm3 03/06/17 11:46 Lymphocytes # (Manual) 0.0 K/mm3 (1.2-5.4) L 03/06/17 11:46 Abs React Lymphs (Man) 0.0 K/mm3 03/06/17 11:46 Monocytes # (Manual) 0.0 K/mm3 (0.0-0.8) 03/06/17 11:46 Eosinophils # (Manual) 0.1 K/mm3 (0.0-0.4) 03/06/17 11:46 Basophils # (Manual) 0.1 K/mm3 (0.0-0.1) 03/06/17 11:46 Metamyelocytes # 0.0 K/mm3 03/06/17 11:46 Myelocytes # 0.0 K/mm3 03/06/17 11:46 Promyelocytes # 0.0 K/mm3 03/06/17 11:46 Blast Cells # 0.0 K/mm3 03/06/17 11:46 WBC Morphology Not Reportable 03/06/17 11:46 Hypersegmented Neuts Not Reportable 03/06/17 11:46 Hyposegmented Neuts Not Reportable 03/06/17 11:46 Hypogranular Neuts Not Reportable 03/06/17 11:46 Smudge Cells Not Reportable 03/06/17 11:46 Toxic Granulation Not Reportable 03/06/17 11:46 Toxic Vacuolation Not Reportable 03/06/17 11:46 Dohle Bodies Not Reportable 03/06/17 11:46 Pelger-Huet Anomaly Not Reportable 03/06/17 11:46 Heather Rods Not Reportable 03/06/17 11:46 Platelet Estimate Cons 03/06/17 11:46 Clumped Platelets Not Reportable 03/06/17 11:46 Plt Clumps, EDTA Not Reportable 03/06/17 11:46 Large Platelets Rare 03/06/17 11:46 Giant Platelets Not Reportable 03/06/17 11:46 Platelet Satelliting Not Reportable 03/06/17 11:46 Plt Morphology Comment Not Reportable 03/06/17 11:46 RBC Morphology Not Reportable 03/06/17 11:46 Dimorphic RBCs Not Reportable 03/06/17 11:46 Polychromasia Not Reportable 03/06/17 11:46 Hypochromasia Not Reportable 03/06/17 11:46 Poikilocytosis Not Reportable 03/06/17 11:46 Anisocytosis 1+ 03/06/17 11:46 Microcytosis Not Reportable 03/06/17 11:46 Macrocytosis Not Reportable 03/06/17 11:46 Spherocytes Not Reportable 03/06/17 11:46 Pappenheimer Bodies Not Reportable 03/06/17 11:46 Sickle Cells Not Reportable 03/06/17 11:46 Target Cells Not Reportable 03/06/17 11:46 Tear Drop Cells Not Reportable 03/06/17 11:46 Ovalocytes Not Reportable 03/06/17 11:46 Helmet Cells Not Reportable 03/06/17 11:46 [place] Bodies Not Reportable 03/06/17 11:46 [place] Rings Not Reportable 03/06/17 11:46 Ary Cells Not Reportable 03/06/17 11:46 Bite Cells Not Reportable 03/06/17 11:46 Crenated Cell Not Reportable 03/06/17 11:46 Elliptocytes Not Reportable 03/06/17 11:46 Acanthocytes (Spur) Not Reportable 03/06/17 11:46 Rouleaux Not Reportable 03/06/17 11:46 Hemoglobin C Crystals Not Reportable 03/06/17 11:46 Schistocytes Not Reportable 03/06/17 11:46 Malaria parasites Not Reportable 03/06/17 11:46 Christiano Bodies Not Reportable 03/06/17 11:46 Hem Pathologist Commnt No 03/06/17 11:46 PT 13.3 Sec. (12.2-14.9) 03/06/17 11:46 INR 0.96 (0.87-1.13) 03/06/17 11:46 VBG pH 7.366 (7.320-7.420) 03/06/17 11:46 Sodium 142 mmol/L (137-145) 03/06/17 11:46 Potassium 4.0 mmol/L (3.6-5.0) 03/06/17 11:46 Chloride 103.6 mmol/L (98-107) 03/06/17 11:46 Carbon Dioxide 23 mmol/L (22-30) 03/06/17 11:46 Anion Gap 19 mmol/L 03/06/17 11:46 BUN 9 mg/dL (9-20) 03/06/17 11:46 Creatinine 1.4 mg/dL (0.8-1.5) 03/06/17 11:46 Estimated GFR 59 ml/min 03/06/17 11:46 BUN/Creatinine Ratio 6.42 % 03/06/17 11:46 Glucose 92 mg/dL (75-100) 03/06/17 11:46 Lactic Acid 1.10 mmol/L (0.7-2.0) 03/06/17 17:44 Calcium 8.8 mg/dL (8.4-10.2) 03/06/17 11:46 Total Bilirubin 0.60 mg/dL (0.1-1.2) 03/06/17 11:46 AST 11 units/L (5-40) 03/06/17 11:46 ALT 7 units/L (7-56) 03/06/17 11:46 Alkaline Phosphatase 111 units/L (35-129) 03/06/17 11:46 Total Protein 6.3 g/dL (6.3-8.2) 03/06/17 11:46 Albumin 3.9 g/dL (3.9-5) 03/06/17 11:46 Albumin/Globulin Ratio 1.6 % 03/06/17 11:46 Urine Color Yellow (Yellow) 03/06/17 12:08 Urine Turbidity Clear (Clear) 03/06/17 12:08 Urine pH 5.0 (5.0-7.0) 03/06/17 12:08 Ur Specific [place] 1.018 (1.003-1.030) 03/06/17 12:08 Urine Protein <15 mg/dl mg/dL (Negative) 03/06/17 12:08 Urine Glucose (UA) Neg mg/dL (Negative) 03/06/17 12:08 Urine Ketones Tr mg/dL (Negative) 03/06/17 12:08 Urine Blood Mod (Negative) 03/06/17 12:08 Urine Nitrite Neg (Negative) 03/06/17 12:08 Urine Bilirubin Neg (Negative) 03/06/17 12:08 Urine Urobilinogen < 2.0 mg/dL (<2.0) 03/06/17 12:08 Ur Leukocyte Esterase Mod (Negative) 03/06/17 12:08 Urine WBC (Auto) 36.0 /HPF (0.0-6.0) H 03/06/17 12:08 Urine RBC (Auto) 33.0 /HPF (0.0-6.0) 03/06/17 12:08 U Epithel Cells (Auto) < 1.0 /HPF (0-13.0) 03/06/17 12:08 Urine Bacteria (Auto) 1+ /HPF (Negative) 03/06/17 12:08 Urine Mucus 1+ /HPF 03/06/17 12:08
[2017-03-08] MEDS: VANCOMYCIN 1,500 MG in NACL 0.9% 500 ML 500 ML IV SCH (13:47)
--- NOTE | 2017-03-08 16:38 | Admit Criteria Form ---
Admission Criteria Documentation: MENTAL STATUS CHANGE Clinical Indications for Inpatient Care (Place 'X' for any and all applicable criteria): Ongoing inpatient care may be needed for 1 or more of the following(1)(2)(3)(5)( 6): [ X]I. Suspected serious etiology (eg, medical disorder, CHAIR LIFT OPERATOR event) of altered mental status [ ]II. Danger to self or others not manageable at lower level of care [ ]III. Grave disability (eg, inability to perform self care necessary at lower level of care) [ ]IV. Agitation or inappropriate behavior interfering with care for primary condition (eg, attempting to discontinue lines or drains prematurely, unable to cooperate with respiratory care) [ ]V. Delirium [A] [D][E] as described by 1 or more of the following(26): [ ]a) Delirium due to alcohol or sedative [F] withdrawal [ ]b) Delirium of uncertain etiology that has not responded to appropriate empiric treatment [ ]c) Delirium that prevents performance of a life-sustaining function (eg, feeding or hydrating oneself) [X ]. General contraindications and/or Inappropriate clinical situations for Observational Care in patients with Mental Status Change, when ANY ONE of the following is required: X]a) Prediction of prolongation of LOS based on ANY ONE of the following may be considered as a contraindication for observational care 2, 3, 4, 5, 6, 7, 8, 9, 10, 11 [X ]i) Age > 65 yrs. [ ]ii) Patient arriving by ambulance [ ]iii) Patient with high acuity [ ]iv) Patient requiring vital sign monitoring [ ]v) Patient on IV medication [ ]b) Systolic blood pressures greater than or equal to 180mmHg 3, 12 [ ]c) Patient with altered mental status including delirium and other alteration of consciousness, (3) [ ]d) Patient whose discharge disposition will be to a group home home or rehabilitation home should not be managed in Emergency Department Observation Unit. CMS rule requires 3 days hospital stay before such placement.3,13 [ ]e) Patient with failure to thrive due to broad array of etiologies 3,16,17 [ ]f) Inability to ambulate 3,14 Extended stay beyond goal length of stay for the primary condition may be needed until ALL of the following are present(3)(5): [ ]a) Underlying medical etiology of mental status change is absent, or has been established and adequately treated [ ]b) Danger to self or others is absent or manageable at lower level of care. [ ]c) Behavior crisis management, including physical or chemical restraints, is not required or available at lower level of car [ ]d) Substance or alcohol withdrawal is absent or manageable at lower level of care. [ ]e) Behavioral symptoms (eg, agitation, somnolence, inappropriate behavior) are absent, or are manageable at lower level of care. The original [facility] [employer] content created by [facility] has been revised. The portions of the content which have been revised are identified through the use of italic text or in bold, and [facility] has neither reviewed nor approved the modified material. All other unmodified content is copyright [facility]. Please see references footnoted in the original [facility] edition 2016 Admission Criteria Met: Yes
[2017-03-08 18:57] LABS: Hematocrit 49.9 % (35.5-45.6); Mean Corpuscular HGB Conc 32 % (32-34); Mean Corpuscular Volume 81 fl (84-94); Platelet Count 178 K/mm3 (140-440); Red Blood Count 6.21 M/mm3 (3.65-5.03); White Blood Count 3.5 K/mm3 (4.5-11.0)
[2017-03-08 19:01] LABS: Mean Corpuscular Hemoglobin 26 pg (28-32)
[2017-03-09] MEDS: TYLENOL PO PRN (03:52)
[2017-03-09 08:45] LABS: Hematocrit 44.5 % (35.5-45.6); Hemoglobin 14.7 gm/dl (11.8-15.2); Mean Corpuscular HGB Conc 33 % (32-34); Mean Corpuscular Hemoglobin 26 pg (28-32); Mean Corpuscular Volume 80 fl (84-94); Platelet Count 172 K/mm3 (140-440); Red Blood Count 5.56 M/mm3 (3.65-5.03); Red Cell Distribution Width 16.5 % (13.2-15.2); White Blood Count 8.6 K/mm3 (4.5-11.0)
[2017-03-09] MEDS: ZESTRIL PO SCH (10:00)
--- NOTE | 2017-03-09 10:31 | Progress Note ---
Assessment and Plan Assessment and plan: Sepsis due to UTI. Blood and urine cultures are negative after 48 hours. Continued IV antibiotics and monitor closely. Toxic metabolic encephalopathy. Monitor neurochecks. He has baseline dementia. Leukocytosis. Resolved. Acute cystitis. Continue Rocephin COPD. Stable Diabetes mellitus type 2. Check fingerstick glucose before every meal and at bedtime Hypertension. BP stable Dementia. Supportive care. On Namenda and Aricept. Continue restraints for now because he keeps trying to get out of bed, fall risk. Continue Haldol prn. DVT prophylaxis. Continue subcutaneous heparin. History Interval history: No new issues overnight. Patient remains confused. Hospitalist Physical - Constitutional Vitals: Temp Pulse Resp BP Pulse Ox 99.5 F 74 24 120/71 94 03/09/17 08:11 03/09/17 08:11 03/09/17 08:11 03/09/17 08:11 03/09/17 08:11 General appearance: Present: no acute distress - EENT Eyes: Present: PERRL, EOM intact ENT: hearing intact, clear oral mucosa, dentition normal - Neck Neck: Present: supple, normal ROM - Respiratory Respiratory effort: normal Respiratory: bilateral: CTA - Cardiovascular Rhythm: regular Heart Sounds: Present: S1 & S2. Absent: gallop, rub - Extremities Extremities: no ischemia, No edema, Full ROM - Abdominal General gastrointestinal: soft, non-tender, non-distended, normal bowel sounds - Integumentary Integumentary: Present: clear, warm, dry - Neurologic Neurologic: CNII-XII intact, moves all extremities Results - Labs CBC & Chem 7: 03/09/17 07:47 03/06/17 11:46 Labs: Laboratory Last Values WBC 8.6 K/mm3 (4.5-11.0) 03/09/17 07:47 RBC 5.56 M/mm3 (3.65-5.03) H 03/09/17 07:47 Hgb 14.7 gm/dl (11.8-15.2) 03/09/17 07:47 Hct 44.5 % (35.5-45.6) 03/09/17 07:47 MCV 80 fl (84-94) L 03/09/17 07:47 MCH 26 pg (28-32) L 03/09/17 07:47 MCHC 33 % (32-34) 03/09/17 07:47 RDW 16.5 % (13.2-15.2) H 03/09/17 07:47 Plt Count 172 K/mm3 (140-440) 03/09/17 07:47 Add Manual Diff Complete 03/06/17 11:46 Total Counted 100 03/06/17 11:46 Seg Neuts % (Manual) 98.0 % (40.0-70.0) H 03/06/17 11:46 Band Neutrophils % 0 % 03/06/17 11:46 Lymphocytes % (Manual) 0 % (13.4-35.0) L 03/06/17 11:46 Reactive Lymphs % (Man) 0 % 03/06/17 11:46 Monocytes % (Manual) 0 % (0.0-7.3) 03/06/17 11:46 Eosinophils % (Manual) 1.0 % (0.0-4.3) 03/06/17 11:46 Basophils % (Manual) 1.0 % (0.0-1.8) 03/06/17 11:46 Metamyelocytes % 0 % 03/06/17 11:46 Myelocytes % 0 % 03/06/17 11:46 Promyelocytes % 0 % 03/06/17 11:46 Blast Cells % 0 % 03/06/17 11:46 Nucleated RBC % Not Reportable 03/06/17 11:46 Seg Neutrophils # Man 12.1 K/mm3 (1.8-7.7) H 03/06/17 11:46 Band Neutrophils # 0.0 K/mm3 03/06/17 11:46 Lymphocytes # (Manual) 0.0 K/mm3 (1.2-5.4) L 03/06/17 11:46 Abs React Lymphs (Man) 0.0 K/mm3 03/06/17 11:46 Monocytes # (Manual) 0.0 K/mm3 (0.0-0.8) 03/06/17 11:46 Eosinophils # (Manual) 0.1 K/mm3 (0.0-0.4) 03/06/17 11:46 Basophils # (Manual) 0.1 K/mm3 (0.0-0.1) 03/06/17 11:46 Metamyelocytes # 0.0 K/mm3 03/06/17 11:46 Myelocytes # 0.0 K/mm3 03/06/17 11:46 Promyelocytes # 0.0 K/mm3 03/06/17 11:46 Blast Cells # 0.0 K/mm3 03/06/17 11:46 WBC Morphology Not Reportable 03/06/17 11:46 Hypersegmented Neuts Not Reportable 03/06/17 11:46 Hyposegmented Neuts Not Reportable 03/06/17 11:46 Hypogranular Neuts Not Reportable 03/06/17 11:46 Smudge Cells Not Reportable 03/06/17 11:46 Toxic Granulation Not Reportable 03/06/17 11:46 Toxic Vacuolation Not Reportable 03/06/17 11:46 Dohle Bodies Not Reportable 03/06/17 11:46 Pelger-Huet Anomaly Not Reportable 03/06/17 11:46 Heather Rods Not Reportable 03/06/17 11:46 Platelet Estimate Cons 03/06/17 11:46 Clumped Platelets Not Reportable 03/06/17 11:46 Plt Clumps, EDTA Not Reportable 03/06/17 11:46 Large Platelets Rare 03/06/17 11:46 Giant Platelets Not Reportable 03/06/17 11:46 Platelet Satelliting Not Reportable 03/06/17 11:46 Plt Morphology Comment Not Reportable 03/06/17 11:46 RBC Morphology Not Reportable 03/06/17 11:46 Dimorphic RBCs Not Reportable 03/06/17 11:46 Polychromasia Not Reportable 03/06/17 11:46 Hypochromasia Not Reportable 03/06/17 11:46 Poikilocytosis Not Reportable 03/06/17 11:46 Anisocytosis 1+ 03/06/17 11:46 Microcytosis Not Reportable 03/06/17 11:46 Macrocytosis Not Reportable 03/06/17 11:46 Spherocytes Not Reportable 03/06/17 11:46 Pappenheimer Bodies Not Reportable 03/06/17 11:46 Sickle Cells Not Reportable 03/06/17 11:46 Target Cells Not Reportable 03/06/17 11:46 Tear Drop Cells Not Reportable 03/06/17 11:46 Ovalocytes Not Reportable 03/06/17 11:46 Helmet Cells Not Reportable 03/06/17 11:46 [place] Bodies Not Reportable 03/06/17 11:46 [place] Rings Not Reportable 03/06/17 11:46 Ary Cells Not Reportable 03/06/17 11:46 Bite Cells Not Reportable 03/06/17 11:46 Crenated Cell Not Reportable 03/06/17 11:46 Elliptocytes Not Reportable 03/06/17 11:46 Acanthocytes (Spur) Not Reportable 03/06/17 11:46 Rouleaux Not Reportable 03/06/17 11:46 Hemoglobin C Crystals Not Reportable 03/06/17 11:46 Schistocytes Not Reportable 03/06/17 11:46 Malaria parasites Not Reportable 03/06/17 11:46 Christiano Bodies Not Reportable 03/06/17 11:46 Hem Pathologist Commnt No 03/06/17 11:46 PT 13.3 Sec. (12.2-14.9) 03/06/17 11:46 INR 0.96 (0.87-1.13) 03/06/17 11:46 VBG pH 7.366 (7.320-7.420) 03/06/17 11:46 Sodium 142 mmol/L (137-145) 03/06/17 11:46 Potassium 4.0 mmol/L (3.6-5.0) 03/06/17 11:46 Chloride 103.6 mmol/L (98-107) 03/06/17 11:46 Carbon Dioxide 23 mmol/L (22-30) 03/06/17 11:46 Anion Gap 19 mmol/L 03/06/17 11:46 BUN 9 mg/dL (9-20) 03/06/17 11:46 Creatinine 1.4 mg/dL (0.8-1.5) 03/06/17 11:46 Estimated GFR 59 ml/min 03/06/17 11:46 BUN/Creatinine Ratio 6.42 % 03/06/17 11:46 Glucose 92 mg/dL (75-100) 03/06/17 11:46 Lactic Acid 1.10 mmol/L (0.7-2.0) 03/06/17 17:44 Calcium 8.8 mg/dL (8.4-10.2) 03/06/17 11:46 Total Bilirubin 0.60 mg/dL (0.1-1.2) 03/06/17 11:46 AST 11 units/L (5-40) 03/06/17 11:46 ALT 7 units/L (7-56) 03/06/17 11:46 Alkaline Phosphatase 111 units/L (35-129) 03/06/17 11:46 Total Protein 6.3 g/dL (6.3-8.2) 03/06/17 11:46 Albumin 3.9 g/dL (3.9-5) 03/06/17 11:46 Albumin/Globulin Ratio 1.6 % 03/06/17 11:46 Urine Color Yellow (Yellow) 03/06/17 12:08 Urine Turbidity Clear (Clear) 03/06/17 12:08 Urine pH 5.0 (5.0-7.0) 03/06/17 12:08 Ur Specific [place] 1.018 (1.003-1.030) 03/06/17 12:08 Urine Protein <15 mg/dl mg/dL (Negative) 03/06/17 12:08 Urine Glucose (UA) Neg mg/dL (Negative) 03/06/17 12:08 Urine Ketones Tr mg/dL (Negative) 03/06/17 12:08 Urine Blood Mod (Negative) 03/06/17 12:08 Urine Nitrite Neg (Negative) 03/06/17 12:08 Urine Bilirubin Neg (Negative) 03/06/17 12:08 Urine Urobilinogen < 2.0 mg/dL (<2.0) 03/06/17 12:08 Ur Leukocyte Esterase Mod (Negative) 03/06/17 12:08 Urine WBC (Auto) 36.0 /HPF (0.0-6.0) H 03/06/17 12:08 Urine RBC (Auto) 33.0 /HPF (0.0-6.0) 03/06/17 12:08 U Epithel Cells (Auto) < 1.0 /HPF (0-13.0) 03/06/17 12:08 Urine Bacteria (Auto) 1+ /HPF (Negative) 03/06/17 12:08 Urine Mucus 1+ /HPF 03/06/17 12:08
[2017-03-09] MEDS: MACROBID PO SCH (11:43)
[2017-03-09] MEDS: FLOMAX PO SCH (11:43)
[2017-03-09] MEDS: PROCARDIA XL PO SCH ×2 (11:43→22:50)
[2017-03-09] MEDS: HCTZ PO SCH (11:44)
[2017-03-09] MEDS: NAMENDA XR PO SCH (11:44)
[2017-03-09] MEDS: HEPARIN SUB-Q SCH ×2 (11:44→22:50)
[2017-03-09] MEDS: BABY ASPIRIN PO SCH (11:44)
[2017-03-09] MEDS: ZOLOFT PO SCH (11:44)
[2017-03-09] MEDS: ARICEPT PO SCH (11:45)
[2017-03-09] MEDS: ROCEPHIN/NS 2 GM/100 ML 2 GM/100 ML BAG IV SCH (11:46)
[2017-03-09] MEDS: VANCOMYCIN 1,500 MG in NACL 0.9% 500 ML 500 ML IV SCH (14:02)
--- NOTE | 2017-03-09 16:08 | Consultation ---
History of Present Illness - Reason for Consult Consult date: 03/09/17 Persistent Fevers Requesting physician: FAVIO GIL - History of Present Illness Mr. Yusuf is an 81-year-old man with multiple chronic illnesses who is admitted for evaluation of malaise and suspected UTI. The patient willfully gives me no details of his presenting illness or current symptoms. History is therefore obtained from the medical record and the patient's nurse. He was febrile to > 102 deg F on admission. Blood and urine specimens were obtained for culture and remain negative to date. He did have an active urinary sediment and empiric Vancomycin, Rocephin and Nitrofurantoin were started. A chest radiograph shows no acute pulmonary findings. He continues to have intermittent fevers to >101 deg F. ID consultation is requested for fever evaluation. Past History Past Medical History: arthritis, COPD, diabetes, heart failure, hypertension, other (Dementia, Debility, BPH) Past Surgical History: cataract removal Social history: , lives with family. denies: smoking, alcohol abuse, prescription drug abuse Family history: hypertension Medications and Allergies Allergies Allergy/AdvReac Type Severity Reaction Status Date / Time No Known Allergies Allergy Verified 01/30/17 11:54 Home Medications Medication Instructions Recorded Confirmed Last Taken Type Donepezil [Aricept] 5 mg PO QDAY 03/19/16 03/06/17 Unknown History Sertraline [Zoloft] 100 mg PO QDAY 03/19/16 03/06/17 Unknown History Tamsulosin [Flomax] 0.4 mg PO QDAY 03/19/16 03/06/17 Unknown History Aspirin [Aspirin BABY CHEW TAB] 81 mg PO QDAY #30 tab.chew 12/17/16 03/06/17 Unknown Rx Amoxicillin/K Clav Tab [Augmentin 1 each PO Q12HR #10 tablet 02/02/17 03/06/17 Unknown Rx 500 MG TAB] Hydrochlorothiazide [HCTZ] 12.5 mg PO QDAY capsule 02/02/17 03/06/17 Unknown Rx Lisinopril [Zestril TAB] 40 mg PO QDAY tablet 02/02/17 03/06/17 Unknown Rx Memantine Xr [Namenda Xr] 14 mg PO DAILY cap 02/02/17 03/06/17 Unknown Rx NIFEdipine XL [Procardia Xl] 30 mg PO Q12HR tablet 02/02/17 03/06/17 Unknown Rx Nitrofurantoin [place]/M-Cryst 100 mg PO Q12HR #14 capsule 03/04/17 03/06/17 Unknown Rx [Macrobid CAP] Active Meds: Active Medications Acetaminophen (Tylenol) 650 mg PO Q4H PRN PRN Reason: Pain MILD(1-3)/Fever >100.5/[place] Last Admin: 03/09/17 03:52 Dose: 650 mg Albuterol (Proventil) 2.5 mg IH Q4HRT PRN PRN Reason: Shortness Of Breath Aspirin (Baby Aspirin) 81 mg PO QDAY [facility] Last Admin: 03/09/17 11:44 Dose: 81 mg Donepezil HCl (Aricept) 5 mg PO QDAY [facility] Last Admin: 03/09/17 11:45 Dose: 5 mg Haloperidol Lactate (Haldol) 5 mg IM Q6H PRN PRN Reason: Agitation Last Admin: 03/07/17 23:32 Dose: 5 mg Heparin Sodium (Porcine) (Heparin) 5,000 unit SUB-Q Q12HR [facility] Last Admin: 03/09/17 11:44 Dose: 5,000 unit Hydralazine HCl (Apresoline) 10 mg IV Q4HR PRN PRN Reason: Sytolic B/P >160 Stop: 03/14/17 20:10 Hydrochlorothiazide (Hctz) 12.5 mg PO QDAY [facility] Last Admin: 03/09/17 11:44 Dose: 12.5 mg Ceftriaxone Sodium (Rocephin/Ns 2 Gm/100 Ml) 2 gm in 100 mls @ 200 mls/hr IV Q24HR [facility] PRN Reason: Protocol Last Admin: 03/09/17 11:46 Dose: 200 mls/hr Vancomycin HCl 1,500 mg/ (Sodium Chloride) 530 mls @ 333.333 mls/hr IV Q24H [facility] Last Admin: 03/09/17 14:02 Dose: 333.333 mls/hr Lisinopril (Zestril) 40 mg PO QDAY [facility] Last Admin: 03/08/17 11:07 Dose: 40 mg Memantine (Namenda Xr) 14 mg PO DAILY [facility] Last Admin: 03/09/17 11:44 Dose: 14 mg Nifedipine (Procardia Xl) 30 mg PO Q12HR [facility] Last Admin: 03/09/17 11:43 Dose: 30 mg Nitrofurantoin Macrocrystals (Macrobid) 100 mg PO Q12HR [facility] Last Admin: 03/09/17 11:43 Dose: 100 mg Sertraline HCl (Zoloft) 100 mg PO QDAY [facility] Last Admin: 03/09/17 11:44 Dose: 100 mg Tamsulosin HCl (Flomax) 0.4 mg PO QDAY [facility] Last Admin: 03/09/17 11:43 Dose: 0.4 mg Vancomycin HCl (Vancomycin Pharmacy To Dose) 1 each IV PKCONSULT [facility] PRN Reason: Protocol Review of Systems ROS unobtainable: due to mental status (patient does not provide details or answers on review of systems) Physical Examination - Constitutional Vitals: Vital Signs Temp Pulse Resp BP Pulse Ox 98.2 F 112 H 20 117/75 99 03/09/17 11:18 03/09/17 11:18 03/09/17 11:18 03/09/17 11:18 03/09/17 11:18 Temperature -Last 24 Hours Temperature 98.2 F Temperature 99.5 F Temperature 101.7 F Temperature 101.7 F Temperature 100 F Temperature 98.0 F Temperature 99.3 F General appearance: Present: well-nourished - EENT Eyes: Absent: scleral icterus, conjunctival injection ENT: clear oral mucosa - Neck Neck: Present: supple - Respiratory Respiratory effort: other (mild tachypnea without accessory muscle use) Respiratory: bilateral: CTA, negative: rales, rhonchi - Cardiovascular Rhythm: regular (tachycardia) Heart Sounds: Present: S1 & S2 - Extremities Extremities: No edema - Abdominal General gastrointestinal: Present: soft, non-tender, non-distended, normal bowel sounds Male genitourinary: Present: normal (condom catheter with dark urine) - Rectal Rectal Exam: other (wearing diaper) - Integumentary Integumentary: Present: clear. Absent: rash - Neurologic Neurologic: moves all extremities Results - Labs CBC & Chem 7: 03/09/17 07:47 03/06/17 11:46 Labs: Abnormal lab results 03/08/17 03/09/17 Range/Units 18:20 07:47 WBC 3.5 L (4.5-11.0) K/mm3 RBC 6.21 H 5.56 H (3.65-5.03) M/mm3 Hgb 16.0 H (11.8-15.2) gm/dl Hct 49.9 H (35.5-45.6) % MCV 81 L 80 L (84-94) fl MCH 26 L 26 L (28-32) pg RDW 16.0 H 16.5 H (13.2-15.2) % Microbiology 03/06/17 11:46 Peripheral/Venous Blood Culture - Preliminary NO GROWTH AFTER 72 HOURS 03/06/17 12:41 Peripheral/Venous Blood Culture - Preliminary NO GROWTH AFTER 72 HOURS 03/06/17 11:30 Urine,Catheterized - Straight Catheter Urine Culture - Final - Imaging and Cardiology Chest x-ray: report reviewed (no acute cardiolpulmonary process; no pneumonia) Assessment and Plan - Patient Problems (1) Sepsis Current Visit: Yes Status: Acute Qualifiers: Sepsis type: sepsis due to unspecified organism Qualified Code(s): A41.9 - Sepsis, unspecified organism Plan to address problem: 1. Will empirically broaden antimicrobial coverage to Vancomycin, Cefepime and Flagyl. 2. Recommend CT imaging of abdomen/ pelvis +/- chest to further delineate a source of fever. 3. Follow outstanding cultures.
[2017-03-09] MEDS: MAXIPIME/NS 1 GM/100 ML 1 GM/100 ML BAG IV SCH (20:06)
[2017-03-09] MEDS ORDERED: NACL ONE (21:13)
--- NOTE | 2017-03-09 22:06 | Cat Scan Report ---
FINAL REPORT PROCEDURE: CT ABDOMEN PELVIS W CON TECHNIQUE: Computerized axial tomography of the abdomen and pelvis was performed after the IV injection of iodinated nonionic contrast. HISTORY: Sepsis COMPARISON: No prior studies are available for comparison. FINDINGS: Visualized lower thorax: No significant abnormality. Liver: There are several circumscribed low-density lesions in the liver, likely related to cysts. Spleen: Normal size and attenuation. Gallbladder and biliary system: Gallbladder is present. No biliary ductal dilatation. Pancreas: There is a lobular low-density lesion in the uncinate process, which measures up to 2.5 centimeters AP by 1.1 centimeters transverse by 2.1 centimeters craniocaudal, compatible with a nonspecific cystic pancreatic lesion. Adrenals: Normal. Kidneys: No hydronephrosis bilaterally. 2.5 centimeter right renal cyst. GI tract: Moderate volume of stool is seen in the rectosigmoid colon. The appendix is visualized and does not appear inflamed. No bowel obstruction or acute inflammation is seen. Lymph nodes and mesentery: Normal. Vasculature: Normal. Bladder: Normal. Reproductive organs: The prostate gland is enlarged and lobular. This indents the bladder base versus bladder base mass. Prostate measures 6 centimeters transverse. Peritoneum: No free fluid. Musculoskeletal structures: Multilevel degenerative disc changes of the lumbar spine. Other: None. IMPRESSION: No acute inflammatory process is seen. There is a 2.5 centimeter lobular cystic lesion in the pancreatic head/uncinate process. Follow-up could be obtained as clinically indicated. Enlarged lobular prostate gland. Either the prostate gland is indenting the bladder base or there may be a bladder base mass. Recommend further evaluation if indicated.
[2017-03-10] MEDS: FLAGYL 500 MG/100 ML 500 MG/100 ML BAG IV SCH ×5 (02:30→17:15)
[2017-03-10] MEDS: MAXIPIME/NS 1 GM/100 ML 1 GM/100 ML BAG IV SCH ×2 (06:08→18:54)
[2017-03-10 07:16] LABS: Anion Gap 16 mmol/L; BUN/Creatinine Ratio 13.07; Blood Urea Nitrogen 17 mg/dL (9-20); Calcium 8.3 mg/dL (8.4-10.2); Carbon Dioxide 26 mmol/L (22-30); Chloride 100.8 mmol/L (98-107); Glucose 110 mg/dL (75-100); Potassium 3.3 mmol/L (3.6-5.0); Sodium 139 mmol/L (137-145)
--- NOTE | 2017-03-10 08:29 | Progress Note ---
Assessment and Plan - Patient Problems (1) Sepsis Current Visit: Yes Status: Acute Qualifiers: Sepsis type: sepsis due to unspecified organism Qualified Code(s): A41.9 - Sepsis, unspecified organism Plan to address problem: 1. Continue current, empiric antibiotic therapy. 2. Recommend urology assessment of prostate gland/ urinary bladder. Subjective Date of service: 03/10/17 Interval history: Afebrile for ~ 24 hours. No new clinical events. Objective - Constitutional Vitals: Vital Signs Temp Pulse Resp BP Pulse Ox 97.6 F 109 H 20 111/77 99 03/10/17 00:00 03/10/17 00:00 03/10/17 00:00 03/10/17 00:00 03/10/17 00:00 Temperature -Last 24 Hours Temperature 97.6 F Temperature 98.2 F Temperature 99.8 F Temperature 98.2 F General appearance: Present: no acute distress, well-nourished - Neck Neck: supple - Respiratory Respiratory effort: normal Respiratory: bilateral: diminished - Cardiovascular Rhythm: regular (tachycardic) Heart Sounds: Present: S1 & S2 Extremities: No edema - Gastrointestinal General gastrointestinal: Present: soft, non-distended, normal bowel sounds - Genitourinary Male genitourinary: normal (condom catheter with dark yellow urine) - Integumentary Integumentary: no rash - Neurologic Neurologic: moves all extremities - Psychiatric Psychiatric: appropriate mood/affect (limited verbal interaction) - Labs CBC & Chem 7: 03/09/17 07:47 03/10/17 06:38 Labs: Abnormal lab results 03/09/17 03/10/17 Range/Units 07:47 06:38 RBC 5.56 H (3.65-5.03) M/mm3 MCV 80 L (84-94) fl MCH 26 L (28-32) pg RDW 16.5 H (13.2-15.2) % Potassium 3.3 L (3.6-5.0) mmol/L Glucose 110 H (75-100) mg/dL Calcium 8.3 L (8.4-10.2) mg/dL - Imaging and cardiology CT scan - abdomen: report reviewed CT scan - pelvis: report reviewed (questionable enlarged prostate gland vs. bladder base mass)
[2017-03-10] MEDS: HEPARIN SUB-Q SCH ×2 (10:45→22:51)
[2017-03-10] MEDS: HCTZ PO SCH (10:46)
[2017-03-10] MEDS: ZOLOFT PO SCH (10:46)
[2017-03-10] MEDS: FLOMAX PO SCH (10:46)
[2017-03-10] MEDS: BABY ASPIRIN PO SCH (10:46)
[2017-03-10] MEDS: PROCARDIA XL PO SCH ×2 (10:46→22:51)
[2017-03-10] MEDS: NAMENDA XR PO SCH (10:46)
[2017-03-10] MEDS: ARICEPT PO SCH (10:46)
[2017-03-10] MEDS: ZESTRIL PO SCH (10:54)
--- NOTE | 2017-03-10 11:49 | Progress Note ---
Assessment and Plan Assessment and plan: Sepsis due to UTI. Blood and urine cultures are negative after 48 hours. Continued IV antibiotics and monitor closely. Bladder mass. Urology consultation. Toxic metabolic encephalopathy. Monitor neurochecks. He has baseline dementia. Leukocytosis. Resolved. Acute cystitis. Continue Rocephin COPD. Stable Diabetes mellitus type 2. Check fingerstick glucose before every meal and at bedtime Hypertension. BP stable Dementia. Supportive care. On Namenda and Aricept. Continue restraints for now because he keeps trying to get out of bed, fall risk. Continue Haldol prn. DVT prophylaxis. Continue subcutaneous heparin. History Interval history: No new issues overnight. Patient remains confused. Hospitalist Physical - Constitutional Vitals: Temp Pulse Resp BP Pulse Ox 101.0 F H 107 H 18 131/82 95 03/10/17 08:00 03/10/17 10:54 03/10/17 08:00 03/10/17 10:54 03/10/17 08:00 General appearance: Present: well-nourished - EENT Eyes: Present: PERRL, EOM intact ENT: hearing intact, clear oral mucosa, dentition normal - Neck Neck: Present: supple, normal ROM - Respiratory Respiratory effort: normal Respiratory: bilateral: CTA - Cardiovascular Rhythm: regular Heart Sounds: Present: S1 & S2. Absent: gallop, rub - Extremities Extremities: no ischemia, No edema, Full ROM - Abdominal General gastrointestinal: soft, non-tender, non-distended, normal bowel sounds - Integumentary Integumentary: Present: clear, warm, dry - Neurologic Neurologic: CNII-XII intact, moves all extremities Results - Labs CBC & Chem 7: 03/09/17 07:47 03/10/17 06:38 Labs: Laboratory Last Values WBC 8.6 K/mm3 (4.5-11.0) 03/09/17 07:47 RBC 5.56 M/mm3 (3.65-5.03) H 03/09/17 07:47 Hgb 14.7 gm/dl (11.8-15.2) 03/09/17 07:47 Hct 44.5 % (35.5-45.6) 03/09/17 07:47 MCV 80 fl (84-94) L 03/09/17 07:47 MCH 26 pg (28-32) L 03/09/17 07:47 MCHC 33 % (32-34) 03/09/17 07:47 RDW 16.5 % (13.2-15.2) H 03/09/17 07:47 Plt Count 172 K/mm3 (140-440) 03/09/17 07:47 Add Manual Diff Complete 03/06/17 11:46 Total Counted 100 03/06/17 11:46 Seg Neuts % (Manual) 98.0 % (40.0-70.0) H 03/06/17 11:46 Band Neutrophils % 0 % 03/06/17 11:46 Lymphocytes % (Manual) 0 % (13.4-35.0) L 03/06/17 11:46 Reactive Lymphs % (Man) 0 % 03/06/17 11:46 Monocytes % (Manual) 0 % (0.0-7.3) 03/06/17 11:46 Eosinophils % (Manual) 1.0 % (0.0-4.3) 03/06/17 11:46 Basophils % (Manual) 1.0 % (0.0-1.8) 03/06/17 11:46 Metamyelocytes % 0 % 03/06/17 11:46 Myelocytes % 0 % 03/06/17 11:46 Promyelocytes % 0 % 03/06/17 11:46 Blast Cells % 0 % 03/06/17 11:46 Nucleated RBC % Not Reportable 03/06/17 11:46 Seg Neutrophils # Man 12.1 K/mm3 (1.8-7.7) H 03/06/17 11:46 Band Neutrophils # 0.0 K/mm3 03/06/17 11:46 Lymphocytes # (Manual) 0.0 K/mm3 (1.2-5.4) L 03/06/17 11:46 Abs React Lymphs (Man) 0.0 K/mm3 03/06/17 11:46 Monocytes # (Manual) 0.0 K/mm3 (0.0-0.8) 03/06/17 11:46 Eosinophils # (Manual) 0.1 K/mm3 (0.0-0.4) 03/06/17 11:46 Basophils # (Manual) 0.1 K/mm3 (0.0-0.1) 03/06/17 11:46 Metamyelocytes # 0.0 K/mm3 03/06/17 11:46 Myelocytes # 0.0 K/mm3 03/06/17 11:46 Promyelocytes # 0.0 K/mm3 03/06/17 11:46 Blast Cells # 0.0 K/mm3 03/06/17 11:46 WBC Morphology Not Reportable 03/06/17 11:46 Hypersegmented Neuts Not Reportable 03/06/17 11:46 Hyposegmented Neuts Not Reportable 03/06/17 11:46 Hypogranular Neuts Not Reportable 03/06/17 11:46 Smudge Cells Not Reportable 03/06/17 11:46 Toxic Granulation Not Reportable 03/06/17 11:46 Toxic Vacuolation Not Reportable 03/06/17 11:46 Dohle Bodies Not Reportable 03/06/17 11:46 Pelger-Huet Anomaly Not Reportable 03/06/17 11:46 Heather Rods Not Reportable 03/06/17 11:46 Platelet Estimate Cons 03/06/17 11:46 Clumped Platelets Not Reportable 03/06/17 11:46 Plt Clumps, EDTA Not Reportable 03/06/17 11:46 Large Platelets Rare 03/06/17 11:46 Giant Platelets Not Reportable 03/06/17 11:46 Platelet Satelliting Not Reportable 03/06/17 11:46 Plt Morphology Comment Not Reportable 03/06/17 11:46 RBC Morphology Not Reportable 03/06/17 11:46 Dimorphic RBCs Not Reportable 03/06/17 11:46 Polychromasia Not Reportable 03/06/17 11:46 Hypochromasia Not Reportable 03/06/17 11:46 Poikilocytosis Not Reportable 03/06/17 11:46 Anisocytosis 1+ 03/06/17 11:46 Microcytosis Not Reportable 03/06/17 11:46 Macrocytosis Not Reportable 03/06/17 11:46 Spherocytes Not Reportable 03/06/17 11:46 Pappenheimer Bodies Not Reportable 03/06/17 11:46 Sickle Cells Not Reportable 03/06/17 11:46 Target Cells Not Reportable 03/06/17 11:46 Tear Drop Cells Not Reportable 03/06/17 11:46 Ovalocytes Not Reportable 03/06/17 11:46 Helmet Cells Not Reportable 03/06/17 11:46 [place] Bodies Not Reportable 03/06/17 11:46 [place] Rings Not Reportable 03/06/17 11:46 [place] Cells Not Reportable 03/06/17 11:46 Bite Cells Not Reportable 03/06/17 11:46 Crenated Cell Not Reportable 03/06/17 11:46 Elliptocytes Not Reportable 03/06/17 11:46 Acanthocytes (Spur) Not Reportable 03/06/17 11:46 Rouleaux Not Reportable 03/06/17 11:46 Hemoglobin C Crystals Not Reportable 03/06/17 11:46 Schistocytes Not Reportable 03/06/17 11:46 Malaria parasites Not Reportable 03/06/17 11:46 [place] Bodies Not Reportable 03/06/17 11:46 Hem Pathologist Commnt No 03/06/17 11:46 PT 13.3 Sec. (12.2-14.9) 03/06/17 11:46 INR 0.96 (0.87-1.13) 03/06/17 11:46 VBG pH 7.366 (7.320-7.420) 03/06/17 11:46 Sodium 139 mmol/L (137-145) 03/10/17 06:38 Potassium 3.3 mmol/L (3.6-5.0) L 03/10/17 06:38 Chloride 100.8 mmol/L (98-107) 03/10/17 06:38 Carbon Dioxide 26 mmol/L (22-30) 03/10/17 06:38 Anion Gap 16 mmol/L 03/10/17 06:38 BUN 17 mg/dL (9-20) 03/10/17 06:38 Creatinine 1.3 mg/dL (0.8-1.5) 03/10/17 06:38 Estimated GFR > 60 ml/min 03/10/17 06:38 BUN/Creatinine Ratio 13.07 % 03/10/17 06:38 Glucose 110 mg/dL (75-100) H 03/10/17 06:38 Lactic Acid 1.10 mmol/L (0.7-2.0) 03/06/17 17:44 Calcium 8.3 mg/dL (8.4-10.2) L 03/10/17 06:38 Total Bilirubin 0.60 mg/dL (0.1-1.2) 03/06/17 11:46 AST 11 units/L (5-40) 03/06/17 11:46 ALT 7 units/L (7-56) 03/06/17 11:46 Alkaline Phosphatase 111 units/L (35-129) 03/06/17 11:46 Total Protein 6.3 g/dL (6.3-8.2) 03/06/17 11:46 Albumin 3.9 g/dL (3.9-5) 03/06/17 11:46 Albumin/Globulin Ratio 1.6 % 03/06/17 11:46 Urine Color Yellow (Yellow) 03/06/17 12:08 Urine Turbidity Clear (Clear) 03/06/17 12:08 Urine pH 5.0 (5.0-7.0) 03/06/17 12:08 Ur Specific [place] 1.018 (1.003-1.030) 03/06/17 12:08 Urine Protein <15 mg/dl mg/dL (Negative) 03/06/17 12:08 Urine Glucose (UA) Neg mg/dL (Negative) 03/06/17 12:08 Urine Ketones Tr mg/dL (Negative) 03/06/17 12:08 Urine Blood Mod (Negative) 03/06/17 12:08 Urine Nitrite Neg (Negative) 03/06/17 12:08 Urine Bilirubin Neg (Negative) 03/06/17 12:08 Urine Urobilinogen < 2.0 mg/dL (<2.0) 03/06/17 12:08 Ur Leukocyte Esterase Mod (Negative) 03/06/17 12:08 Urine WBC (Auto) 36.0 /HPF (0.0-6.0) H 03/06/17 12:08 Urine RBC (Auto) 33.0 /HPF (0.0-6.0) 03/06/17 12:08 U Epithel Cells (Auto) < 1.0 /HPF (0-13.0) 03/06/17 12:08 Urine Bacteria (Auto) 1+ /HPF (Negative) 03/06/17 12:08 Urine Mucus 1+ /HPF 03/06/17 12:08
[2017-03-10] MEDS: TYLENOL PO PRN (11:59)
[2017-03-10] MEDS: VANCOMYCIN 1,500 MG in NACL 0.9% 500 ML 500 ML IV SCH ×2 (15:30→17:13)
--- NOTE | 2017-03-10 15:33 | Consultation ---
History of Present Illness - Reason for Consult Consult date: 03/10/17 - History of Present Illness CC - bladder mass, gross hematuria 81 YO Male with HTN, DM, OA, CHF, COPD, Dementia, BPH, Debility presents to ED for evaluation. Pt unable to provide detailed history. History taken from ED staff, medical record, & . No reports of fever, chills, CP, palpitations, NVD, Syncope, Trauma, Fall, BRBPR, Seizure, recent ill contacts. In ED, pt found to have suprapubic tenderness on exam and UA indicative of UTI, as well as sepsis. Sepsis protocol initiated in ED. at bedside CTAP---2cm rt renal cyst, BPH, possble bladder mass condom catheter A/P gross Hematuria bladder mass need cystoscopy if cleared by medical service Past History Past Medical History: arthritis, COPD, diabetes, heart failure, hypertension, other (Dementia, Debility, BPH) Past Surgical History: cataract removal Social history: , lives with family. denies: smoking, alcohol abuse, prescription drug abuse Family history: hypertension Medications and Allergies Allergies Allergy/AdvReac Type Severity Reaction Status Date / Time No Known Allergies Allergy Verified 01/30/17 11:54 Home Medications Medication Instructions Recorded Confirmed Last Taken Type Donepezil [Aricept] 5 mg PO QDAY 03/19/16 03/06/17 Unknown History Sertraline [Zoloft] 100 mg PO QDAY 03/19/16 03/06/17 Unknown History Tamsulosin [Flomax] 0.4 mg PO QDAY 03/19/16 03/06/17 Unknown History Aspirin [Aspirin BABY CHEW TAB] 81 mg PO QDAY #30 tab.chew 12/17/16 03/06/17 Unknown Rx Amoxicillin/K Clav Tab [Augmentin 1 each PO Q12HR #10 tablet 02/02/17 03/06/17 Unknown Rx 500 MG TAB] Hydrochlorothiazide [HCTZ] 12.5 mg PO QDAY capsule 02/02/17 03/06/17 Unknown Rx Lisinopril [Zestril TAB] 40 mg PO QDAY tablet 02/02/17 03/06/17 Unknown Rx Memantine Xr [Namenda Xr] 14 mg PO DAILY cap 02/02/17 03/06/17 Unknown Rx NIFEdipine XL [Procardia Xl] 30 mg PO Q12HR tablet 02/02/17 03/06/17 Unknown Rx Nitrofurantoin [place]/M-Cryst 100 mg PO Q12HR #14 capsule 03/04/17 03/06/17 Unknown Rx [Macrobid CAP] Active Meds: Active Medications Acetaminophen (Tylenol) 650 mg PO Q4H PRN PRN Reason: Pain MILD(1-3)/Fever >100.5/[place] Last Admin: 03/10/17 11:59 Dose: 650 mg Albuterol (Proventil) 2.5 mg IH Q4HRT PRN PRN Reason: Shortness Of Breath Aspirin (Baby Aspirin) 81 mg PO QDAY [facility] Last Admin: 03/10/17 10:46 Dose: 81 mg Donepezil HCl (Aricept) 5 mg PO QDAY [facility] Last Admin: 03/10/17 10:46 Dose: 5 mg Haloperidol Lactate (Haldol) 5 mg IM Q6H PRN PRN Reason: Agitation Last Admin: 03/07/17 23:32 Dose: 5 mg Heparin Sodium (Porcine) (Heparin) 5,000 unit SUB-Q Q12HR [facility] Last Admin: 03/10/17 10:45 Dose: 5,000 unit Hydralazine HCl (Apresoline) 10 mg IV Q4HR PRN PRN Reason: Sytolic B/P >160 Stop: 03/14/17 20:10 Hydrochlorothiazide (Hctz) 12.5 mg PO QDAY [facility] Last Admin: 03/10/17 10:46 Dose: 12.5 mg Cefepime HCl (Maxipime/Ns 1 Gm/100 Ml) 1 gm in 100 mls @ 200 mls/hr IV Q12H [facility] PRN Reason: Protocol Last Admin: 03/10/17 06:08 Dose: 100 mls/hr Metronidazole (Flagyl 500 Mg/100 Ml) 500 mg in 100 mls @ 100 mls/hr IV Q8H [facility] Last Admin: 03/10/17 10:58 Dose: 100 mls/hr Vancomycin HCl 1,500 mg/ (Sodium Chloride) 530 mls @ 333.333 mls/hr IV Q18H [facility] Lisinopril (Zestril) 40 mg PO QDAY [facility] Last Admin: 03/10/17 10:54 Dose: 40 mg Memantine (Namenda Xr) 14 mg PO DAILY [facility] Last Admin: 03/10/17 10:46 Dose: 14 mg Nifedipine (Procardia Xl) 30 mg PO Q12HR [facility] Last Admin: 03/10/17 10:46 Dose: 30 mg Sertraline HCl (Zoloft) 100 mg PO QDAY [facility] Last Admin: 03/10/17 10:46 Dose: 100 mg Tamsulosin HCl (Flomax) 0.4 mg PO QDAY [facility] Last Admin: 03/10/17 10:46 Dose: 0.4 mg Vancomycin HCl (Vancomycin Pharmacy To Dose) 1 each IV PKCONSULT [facility] PRN Reason: Protocol Exam - Constitutional Vitals: Temp Pulse Resp BP Pulse Ox 98.5 F 104 H 20 122/81 98 03/10/17 15:18 03/10/17 15:18 03/10/17 15:18 03/10/17 15:18 03/10/17 12:10 Results - Labs CBC & Chem 7: 03/09/17 07:47 03/10/17 06:38 Labs: Abnormal lab results 03/10/17 Range/Units 06:38 Potassium 3.3 L (3.6-5.0) mmol/L Glucose 110 H (75-100) mg/dL Calcium 8.3 L (8.4-10.2) mg/dL
--- NOTE | 2017-03-10 17:45 | Anesthesia Consultation ---
Anesthesia Consult and Med Hx Date of service: 03/10/17 - Airway Anesthetic Teeth Evaluation: Dentures (upper and lower) ROM Head & Neck: Adequate Mental/Hyoid Distance: Adequate Mallampati Class: Class II Intubation Access Assessment: Probably Good - Pulmonary Exam CTA: Yes - Cardiac Exam Cardiac Exam: RRR - Pre-Operative Health Status ASA Pre-Surgery Classification: ASA3 Proposed Anesthetic Plan: General - Pulmonary Hx Smoking: Yes (quit 2 years ago) COPD: Yes Hx Pneumonia: Yes Hx Sleep Apnea: Yes (Cpap during day, not at night) - Cardiovascular System Hx Hypertension: Yes - Central Nervous System CVA: Yes (1996) Hx Psychiatric Problems: Yes - Gastrointestinal Hx Ulcer: Yes - Hematic Hx Anemia: Yes - Other Systems Hx Substance Use: Yes (Marijuana, quit 2+ years ago) Hx Cancer: No - Additional Comments Anesthesia Medical History Comments: altered mental status, consented over phone. Dementia, encephalopathy
[2017-03-11] MEDS: FLAGYL 500 MG/100 ML 500 MG/100 ML BAG IV SCH ×4 (01:28→17:06)
[2017-03-11] MEDS: MAXIPIME/NS 1 GM/100 ML 1 GM/100 ML BAG IV SCH ×2 (06:12→18:36)
[2017-03-11] MEDS ORDERED: PEPCID PO NR (09:00)
[2017-03-11] MEDS ORDERED: NACL 0.9% 1000 ML 1,000 ML IV SCH (09:00)
[2017-03-11] MEDS: FLOMAX PO SCH (10:00)
[2017-03-11] MEDS: BABY ASPIRIN PO SCH (10:00)
[2017-03-11] MEDS: ZOLOFT PO SCH (10:00)
[2017-03-11] MEDS: PROCARDIA XL PO SCH ×2 (10:00→21:38)
[2017-03-11] MEDS: ZESTRIL PO SCH (10:00)
[2017-03-11] MEDS: NAMENDA XR PO SCH (10:00)
[2017-03-11] MEDS: ARICEPT PO SCH (10:00)
[2017-03-11] MEDS: VANCOMYCIN 1,500 MG in NACL 0.9% 500 ML 500 ML IV SCH (10:00)
[2017-03-11] MEDS: HCTZ PO SCH (10:00)
[2017-03-11] MEDS: HEPARIN SUB-Q SCH ×2 (10:00→21:38)
--- NOTE | 2017-03-11 10:44 | Progress Note ---
Assessment and Plan Assessment and plan: Sepsis due to UTI. Blood and urine cultures are negative after 48 hours. Continued IV antibiotics and monitor closely. Bladder mass with gross hematuria. Urology to perform cystoscopy. Toxic metabolic encephalopathy. Monitor neurochecks. He has baseline dementia. Leukocytosis. Resolved. Acute cystitis. Continue Rocephin COPD. Stable Diabetes mellitus type 2. Check fingerstick glucose before every meal and at bedtime Hypertension. BP stable Dementia. Supportive care. On Namenda and Aricept. Continue restraints for now because he keeps trying to get out of bed, fall risk. Continue Haldol prn. DVT prophylaxis. Continue subcutaneous heparin. History Interval history: No new issues overnight. Hospitalist Physical - Constitutional Vitals: Temp Pulse Resp BP Pulse Ox 97.3 F L 95 H 16 136/84 97 03/11/17 07:49 03/11/17 07:49 03/11/17 07:49 03/11/17 07:49 03/11/17 07:49 General appearance: Present: no acute distress, well-nourished - EENT Eyes: Present: PERRL, EOM intact ENT: hearing intact, clear oral mucosa, dentition normal - Neck Neck: Present: supple, normal ROM - Respiratory Respiratory effort: normal Respiratory: bilateral: CTA - Cardiovascular Rhythm: regular Heart Sounds: Present: S1 & S2. Absent: gallop, rub - Extremities Extremities: no ischemia, No edema, Full ROM - Abdominal General gastrointestinal: soft, non-tender, non-distended, normal bowel sounds - Integumentary Integumentary: Present: clear, warm, dry - Neurologic Neurologic: CNII-XII intact, moves all extremities Results - Labs CBC & Chem 7: 03/09/17 07:47 03/10/17 06:38 Labs: Laboratory Last Values WBC 8.6 K/mm3 (4.5-11.0) 03/09/17 07:47 RBC 5.56 M/mm3 (3.65-5.03) H 03/09/17 07:47 Hgb 14.7 gm/dl (11.8-15.2) 03/09/17 07:47 Hct 44.5 % (35.5-45.6) 03/09/17 07:47 MCV 80 fl (84-94) L 03/09/17 07:47 MCH 26 pg (28-32) L 03/09/17 07:47 MCHC 33 % (32-34) 03/09/17 07:47 RDW 16.5 % (13.2-15.2) H 03/09/17 07:47 Plt Count 172 K/mm3 (140-440) 03/09/17 07:47 Add Manual Diff Complete 03/06/17 11:46 Total Counted 100 03/06/17 11:46 Seg Neuts % (Manual) 98.0 % (40.0-70.0) H 03/06/17 11:46 Band Neutrophils % 0 % 03/06/17 11:46 Lymphocytes % (Manual) 0 % (13.4-35.0) L 03/06/17 11:46 Reactive Lymphs % (Man) 0 % 03/06/17 11:46 Monocytes % (Manual) 0 % (0.0-7.3) 03/06/17 11:46 Eosinophils % (Manual) 1.0 % (0.0-4.3) 03/06/17 11:46 Basophils % (Manual) 1.0 % (0.0-1.8) 03/06/17 11:46 Metamyelocytes % 0 % 03/06/17 11:46 Myelocytes % 0 % 03/06/17 11:46 Promyelocytes % 0 % 03/06/17 11:46 Blast Cells % 0 % 03/06/17 11:46 Nucleated RBC % Not Reportable 03/06/17 11:46 Seg Neutrophils # Man 12.1 K/mm3 (1.8-7.7) H 03/06/17 11:46 Band Neutrophils # 0.0 K/mm3 03/06/17 11:46 Lymphocytes # (Manual) 0.0 K/mm3 (1.2-5.4) L 03/06/17 11:46 Abs React Lymphs (Man) 0.0 K/mm3 03/06/17 11:46 Monocytes # (Manual) 0.0 K/mm3 (0.0-0.8) 03/06/17 11:46 Eosinophils # (Manual) 0.1 K/mm3 (0.0-0.4) 03/06/17 11:46 Basophils # (Manual) 0.1 K/mm3 (0.0-0.1) 03/06/17 11:46 Metamyelocytes # 0.0 K/mm3 03/06/17 11:46 Myelocytes # 0.0 K/mm3 03/06/17 11:46 Promyelocytes # 0.0 K/mm3 03/06/17 11:46 Blast Cells # 0.0 K/mm3 03/06/17 11:46 WBC Morphology Not Reportable 03/06/17 11:46 Hypersegmented Neuts Not Reportable 03/06/17 11:46 Hyposegmented Neuts Not Reportable 03/06/17 11:46 Hypogranular Neuts Not Reportable 03/06/17 11:46 Smudge Cells Not Reportable 03/06/17 11:46 Toxic Granulation Not Reportable 03/06/17 11:46 Toxic Vacuolation Not Reportable 03/06/17 11:46 Dohle Bodies Not Reportable 03/06/17 11:46 Pelger-Huet Anomaly Not Reportable 03/06/17 11:46 Heather Rods Not Reportable 03/06/17 11:46 Platelet Estimate Cons 03/06/17 11:46 Clumped Platelets Not Reportable 03/06/17 11:46 Plt Clumps, EDTA Not Reportable 03/06/17 11:46 Large Platelets Rare 03/06/17 11:46 Giant Platelets Not Reportable 03/06/17 11:46 Platelet Satelliting Not Reportable 03/06/17 11:46 Plt Morphology Comment Not Reportable 03/06/17 11:46 RBC Morphology Not Reportable 03/06/17 11:46 Dimorphic RBCs Not Reportable 03/06/17 11:46 Polychromasia Not Reportable 03/06/17 11:46 Hypochromasia Not Reportable 03/06/17 11:46 Poikilocytosis Not Reportable 03/06/17 11:46 Anisocytosis 1+ 03/06/17 11:46 Microcytosis Not Reportable 03/06/17 11:46 Macrocytosis Not Reportable 03/06/17 11:46 Spherocytes Not Reportable 03/06/17 11:46 Pappenheimer Bodies Not Reportable 03/06/17 11:46 Sickle Cells Not Reportable 03/06/17 11:46 Target Cells Not Reportable 03/06/17 11:46 Tear Drop Cells Not Reportable 03/06/17 11:46 Ovalocytes Not Reportable 03/06/17 11:46 Helmet Cells Not Reportable 03/06/17 11:[address] [place] Bodies Not Reportable 03/06/17 11:46 [place] Rings Not Reportable 03/06/17 11:46 [place] Cells Not Reportable 03/06/17 11:46 Bite Cells Not Reportable 03/06/17 11:46 Crenated Cell Not Reportable 03/06/17 11:46 Elliptocytes Not Reportable 03/06/17 11:46 Acanthocytes (Spur) Not Reportable 03/06/17 11:46 Rouleaux Not Reportable 03/06/17 11:46 Hemoglobin C Crystals Not Reportable 03/06/17 11:46 Schistocytes Not Reportable 03/06/17 11:46 Malaria parasites Not Reportable 03/06/17 11:46 Christiano Bodies Not Reportable 03/06/17 11:46 Hem Pathologist Commnt No 03/06/17 11:46 PT 13.3 Sec. (12.2-14.9) 03/06/17 11:46 INR 0.96 (0.87-1.13) 03/06/17 11:46 VBG pH 7.366 (7.320-7.420) 03/06/17 11:46 Sodium 139 mmol/L (137-145) 03/10/17 06:38 Potassium 3.3 mmol/L (3.6-5.0) L 03/10/17 06:38 Chloride 100.8 mmol/L (98-107) 03/10/17 06:38 Carbon Dioxide 26 mmol/L (22-30) 03/10/17 06:38 Anion Gap 16 mmol/L 03/10/17 06:38 BUN 17 mg/dL (9-20) 03/10/17 06:38 Creatinine 1.3 mg/dL (0.8-1.5) 03/10/17 06:38 Estimated GFR > 60 ml/min 03/10/17 06:38 BUN/Creatinine Ratio 13.07 % 03/10/17 06:38 Glucose 110 mg/dL (75-100) H 03/10/17 06:38 POC Glucose 93 (70-105) 03/11/17 08:30 Lactic Acid 1.10 mmol/L (0.7-2.0) 03/06/17 17:44 Calcium 8.3 mg/dL (8.4-10.2) L 03/10/17 06:38 Total Bilirubin 0.60 mg/dL (0.1-1.2) 03/06/17 11:46 AST 11 units/L (5-40) 03/06/17 11:46 ALT 7 units/L (7-56) 03/06/17 11:46 Alkaline Phosphatase 111 units/L (35-129) 03/06/17 11:46 Total Protein 6.3 g/dL (6.3-8.2) 03/06/17 11:46 Albumin 3.9 g/dL (3.9-5) 03/06/17 11:46 Albumin/Globulin Ratio 1.6 % 03/06/17 11:46 Urine Color Yellow (Yellow) 03/06/17 12:08 Urine Turbidity Clear (Clear) 03/06/17 12:08 Urine pH 5.0 (5.0-7.0) 03/06/17 12:08 Ur Specific [place] 1.018 (1.003-1.030) 03/06/17 12:08 Urine Protein <15 mg/dl mg/dL (Negative) 03/06/17 12:08 Urine Glucose (UA) Neg mg/dL (Negative) 03/06/17 12:08 Urine Ketones Tr mg/dL (Negative) 03/06/17 12:08 Urine Blood Mod (Negative) 03/06/17 12:08 Urine Nitrite Neg (Negative) 03/06/17 12:08 Urine Bilirubin Neg (Negative) 03/06/17 12:08 Urine Urobilinogen < 2.0 mg/dL (<2.0) 03/06/17 12:08 Ur Leukocyte Esterase Mod (Negative) 03/06/17 12:08 Urine WBC (Auto) 36.0 /HPF (0.0-6.0) H 03/06/17 12:08 Urine RBC (Auto) 33.0 /HPF (0.0-6.0) 03/06/17 12:08 U Epithel Cells (Auto) < 1.0 /HPF (0-13.0) 03/06/17 12:08 Urine Bacteria (Auto) 1+ /HPF (Negative) 03/06/17 12:08 Urine Mucus 1+ /HPF 03/06/17 12:08 Vancomycin Trough 10.2 ug/mL (5.0-20.0) 03/10/17 13:20
--- NOTE | 2017-03-11 13:41 | Anesthesia Day of Surgery ---
Anesthesia Day of Surgery - Day of Surgery Patient Examined: Yes Patient H&P Reviewed: Yes Patient is NPO: Yes Beta Blockers: No (N/A)
[2017-03-11] MEDS ORDERED: PEPCID IV NR ×2 (13:53→14:18)
[2017-03-11] MEDS ORDERED: SUBLIMAZE ONE (15:09)
[2017-03-11] MEDS ORDERED: DIPRIVAN 10 MG/ML IV ONE (15:09)
[2017-03-11] MEDS ORDERED: NEO SYNEPHRINE/NS Syringe(OR USE) IV ONE (16:00)
[2017-03-11] MEDS ORDERED: WATER FOR IRRIG STERILE IR ONE (16:00)
[2017-03-11] MEDS ORDERED: DECADRON ONE (16:18)
[2017-03-11] MEDS ORDERED: ZOFRAN ONE (16:18)
--- NOTE | 2017-03-11 16:23 | Post Operative Note ---
Date of procedure: 03/11/17 Pre-op diagnosis: gross hematuria, bladder mass Post-op diagnosis: same Procedure: Cystoscopy and bilateral retrograde pyelograms Indications The patient is an 81-year-old gentleman admitted through the emergency room for altered mental status. History was taken per chart review as well as his . His noted an episode of gross hematuria in the past. CT abdomen and pelvis revealed bladder mass versus BPH. Discussed with she agreed to proceed with endoscopic evaluation. Procedure Patient was taken to the operative suite placed in the supine position after adequate general anesthesia, he was then placed in a dorsal lithotomy position prepped and draped in a sterile fashion. Hatch cystoscopy was performed with a 22 Serbian Storz cystoscope. 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 Both ureteral orifices in normal position. Bilateral retrograde pyelograms were obtained with an 8 Serbian [place] catheter and 8 mL of contrast with no filling defects or obstruction. Patient was noted to have J hooking of the ureters consistent with BPH. 18 Serbian Rhodes catheter was placed without difficulty rectal exam was benign. He was extubated taken the recovery room in stable condition Okay to remove Rhodes catheter in the morning Recommend Flomax 2 tablets daily Okay to DC home at any point Anesthesia: VANCE Surgeon: ROQUE PRESCOTT Estimated blood loss: none Pathology: none Condition: stable Disposition: PACU (pt had condom catheter (placed indwelling rhodes at surgery - ok to remove in am), increase flomax 1 BID)
[2017-03-11] MEDS ORDERED: NORMODYNE IV ONE (16:24)
--- NOTE | 2017-03-11 16:31 | Event Note ---
Date: 03/11/17 spoke with pt's recommend flomax BID pt did not have catheter at home can remove in am by primary service & home
[2017-03-12] MEDS: FLAGYL 500 MG/100 ML 500 MG/100 ML BAG IV SCH ×2 (00:44→09:38)
[2017-03-12] MEDS: VANCOMYCIN 1,500 MG in NACL 0.9% 500 ML 500 ML IV SCH (04:15)
[2017-03-12] MEDS: MAXIPIME/NS 1 GM/100 ML 1 GM/100 ML BAG IV SCH (06:55)
--- NOTE | 2017-03-12 08:30 | Discharge Summary ---
Providers - Providers Date of Admission: 03/06/17 12:47 Date of discharge: 03/12/17 Attending physician: FAVIO GIL 03/06/17 16:10 Physical Therapy Evaluation and Treat [CONS] Routine Comment: Reason For Exam: weakness 03/09/17 07:29 Consult to Physician [CONS] Routine Consulting Provider: MALINDA ACOSTA Reason For Exam: persistent fevers Place consult to:: DR. ACOSTA Notified:: DR. ACOSTA Phone number called:: IN HOUSE Was contact made?: Yes If yes, spoke with:: DR. ACOSTA Time called:: 09:06 Primary care physician: HISTORICAL SOCIETY DIRECTOR Hospitalization Reason for admission: sepsis, uti Condition: Stable Hospital course: Mr. Yusuf is an 81-year-old man with multiple chronic illnesses who was admitted for evaluation of malaise and suspected UTI. Patient was admitted with a diagnosis of sepsis with UTI. The patient was noted to be febrile temp > 102 deg F on admission. Blood and urine specimens were obtained for culture and remain negative to date. He did have an active urinary sediment and empiric Vancomycin, Rocephin and Nitrofurantoin were started. A chest radiograph shows no acute pulmonary findings. He continued to have intermittent fevers to >101 deg F. Therefore, ID consultation was requested for fever evaluation. CT scan of the abdomen and pelvis was also obtained which revealed a bladder mass. Urology saw the patient in consultation and perform cystoscopy with bilateral retrograde pyelograms. No tumors or stones were noted. Also, no filling defects or obstructions. Patient tolerated the procedure well. Urology recommended Flomax 2 tablets daily and discharge. Patient also had other complications with toxic metabolic encephalopathy secondary to the sepsis which resolved. Patient is felt to have received maximal hospital benefit for discharge. Case management was consulted for placement. Therefore, patient will be discharged to [place] [facility]. Dedicated discharge time 35 minutes. Disposition: [id number]/[place]-03 [facility] Time spent for discharge: 35 - Discharge Diagnoses (1) Sepsis Status: Acute Qualifiers: Sepsis type: sepsis due to unspecified organism Qualified Code(s): A41.9 - Sepsis, unspecified organism (2) Toxic encephalopathy Status: Acute (3) UTI (urinary tract infection) Status: Acute Qualifiers: Urinary tract infection type: acute cystitis Hematuria presence: without hematuria Indwelling urinary catheter type: I Encounter type: E Qualified Code(s): N30.00 - Acute cystitis without hematuria (4) Dementia Status: Acute Qualifiers: Dementia type: unspecified type Alzheimer's disease onset: A Dementia behavioral disturbance: with behavioral disturbance Qualified Code(s): F03.91 - Unspecified dementia with behavioral disturbance Core Measure Documentation - Palliative Care Palliative Care/ Comfort Measures: Not Applicable - Core Measures Any of the following diagnoses?: none Exam - Constitutional Vitals: Temp Pulse Resp BP Pulse Ox 98.6 F 96 H 18 198/113 97 03/12/17 08:00 03/12/17 08:00 03/12/17 08:00 03/12/17 08:00 03/12/17 08:00 General appearance: Present: no acute distress, well-nourished - EENT Eyes: Present: PERRL ENT: hearing intact, clear oral mucosa - Neck Neck: Present: supple, normal ROM - Respiratory Respiratory effort: normal Respiratory: bilateral: CTA - Cardiovascular Heart Sounds: Present: S1 & S2. Absent: rub, click - Extremities Extremities: pulses symmetrical, No edema Peripheral Pulses: within normal limits - Abdominal General gastrointestinal: Present: soft, non-tender, non-distended, normal bowel sounds Male genitourinary: Present: normal - Integumentary Integumentary: Present: clear, warm, dry - Musculoskeletal Musculoskeletal: gait normal, strength equal bilaterally - Psychiatric Psychiatric: appropriate mood/affect, intact judgment & insight - Neurologic Neurologic: CNII-XII intact, moves all extremities Plan Activity: advance as tolerated Weight Bearing Status: Weight Bear as Tolerated Follow up with: ERIC ROSE MD [Primary Care Provider] - 3-5 Days MALINDA ACOSTA MD [Staff Physician] - 7 Days Prescriptions: Tamsulosin [Flomax] 0.4 mg PO BID #60 cap
--- NOTE | 2017-03-12 08:34 | Progress Note ---
Assessment and Plan - Patient Problems (1) Sepsis Current Visit: Yes Status: Acute Qualifiers: Sepsis type: sepsis due to unspecified organism Qualified Code(s): A41.9 - Sepsis, unspecified organism Plan to address problem: 1. Presumed source. 2. Patient has completed 7 days of empiric coverage for acute cystitis vs. prostatitis. 3. Patient can complete today's doses then discharge to home with close urology follow-up. Subjective Date of service: 03/12/17 Interval history: Remains afebrile. Stable. Anticipated discharge today following procedure yesterday. Objective - Constitutional Vitals: Vital Signs Temp Pulse Resp BP Pulse Ox 98.6 F 96 H 18 198/113 97 03/12/17 08:00 03/12/17 08:00 03/12/17 08:00 03/12/17 08:00 03/12/17 08:00 Temperature -Last 24 Hours Temperature 98.6 F Temperature 98.5 F Temperature 98.9 F Temperature 98.6 F Temperature 97.9 F Temperature 98.2 F Temperature 98.2 F Temperature 97.3 F General appearance: Present: no acute distress, well-nourished - Respiratory Respiratory effort: normal Respiratory: bilateral: CTA - Cardiovascular Rhythm: regular Heart Sounds: Present: S1 & S2 Extremities: No edema - Gastrointestinal General gastrointestinal: Present: non-distended, normal bowel sounds - Genitourinary Male genitourinary: normal (indwelling urinary catheter with dark, yellow urine) - Integumentary Integumentary: clear, no rash - Neurologic Neurologic: moves all extremities, other (non-verbal (waves hello and good-bye)) - Labs CBC & Chem 7: 03/09/17 07:47 03/10/17 06:38 Labs: Abnormal lab results 03/11/17 Range/Units 22:20 POC Glucose 137 H (70-105) Microbiology 03/06/17 11:46 Peripheral/Venous Blood Culture - Final NO GROWTH AFTER 5 DAYS 03/06/17 12:41 Peripheral/Venous Blood Culture - Final NO GROWTH AFTER 5 DAYS 03/06/17 11:30 Urine,Catheterized - Straight Catheter Urine Culture - Final
[2017-03-12] MEDS: NAMENDA XR PO SCH (09:41)
[2017-03-12] MEDS: ZOLOFT PO SCH (09:42)
[2017-03-12] MEDS: BABY ASPIRIN PO SCH (09:42)
[2017-03-12] MEDS: PROCARDIA XL PO SCH (09:42)
[2017-03-12] MEDS: HCTZ PO SCH (09:42)
[2017-03-12] MEDS: ZESTRIL PO SCH (09:42)
[2017-03-12] MEDS: ARICEPT PO SCH (09:42)
[2017-03-12] MEDS: HEPARIN SUB-Q SCH (09:42)
[2017-03-12] MEDS ORDERED: FLOMAX PO SCH (10:00)
[2017-03-12 10:59] VITALS: BP 142/91
--- NOTE | 2017-03-14 10:14 | Fluoroscopy Report ---
RETROGRADE PYELOGRAM: History: Gross hematuria. There is adequate filling of the ureters and intrarenal collecting systems with no filling defects or anatomic abnormalities identified. History: No abnormality identified.
== END 2017-03-12 14:45 | DRG 871 ==
LOC: ED 11:14 → 3A 12:47
PROVIDERS: ADMIT Internal Medicine; ATTEND Hospitalist
PROC: 0TJB8ZZ Inspection of Bladder, Via Natural or Artificial Opening Endoscopic (ICD-10-PCS; principal; 2017-03-11)
PROC: BT141ZZ Fluoroscopy of Kidneys, Ureters and Bladder using Low Osmolar Contrast (ICD-10-PCS; 2017-03-11)
DX: A41.9 Sepsis, unspecified organism (principal); G92 Toxic encephalopathy; N30.01 Acute cystitis with hematuria; F03.90 Unspecified dementia, unspecified severity, without behavioral disturbance, psychotic disturbance, mood disturbance, and anxiety; I11.0 Hypertensive heart disease with heart failure; I50.9 Heart failure, unspecified; M19.90 Unspecified osteoarthritis, unspecified site; N40.0 Benign prostatic hyperplasia without lower urinary tract symptoms; J44.9 Chronic obstructive pulmonary disease, unspecified; E11.9 Type 2 diabetes mellitus without complications
CPT/HCPCS: 36415; 51701; 71010; 74177; 74420; 80048; 80053; 80202; 81001; 82140; 82805; 82962; 85007; 85025; 85027; 85610; 87040; 87086; 93005; 93010; 96365; A4217; C1758; G8978-GP; G8979-GP; J0360; J0692; J0696; J1100; J1630; J1644; J2370; J2405; J2704; J3010; J3370; J7030; J7040; Q9967